=== PATIENT | male | born 1950 | race Caucasian/White ===

== ENCOUNTER → 2016-08-18 | Day surgery (SDC) | payer OTHER ==
[~2016-08-18] MED LIST: ACETAMINOPHEN/HYDROcodone 325 MG/5 MG TAB ONE; AMIT10 PO; ASPI325T PO; BETAPOW PO; BUPIVACAINE/EPINEPHRINE 0.5% PF 30 ML VIAL ONE; DAYP600T PO; ENDO10TA8 PO; FISH100020 PO; HYDR-3580 PO; KETOROLAC TROMETHAMINE 30 MG/ML (IVP) VIAL IV PUSH ONE; LACTATED RINGER'S 1000 ML INJ 1,000 ML ONE; METO50TA PO; MIDAZOLAM HCL 2 MG/2 ML VIAL ONE; MS C30TA5 PO; OCUVTAB4 PO; ONDANSETRON HCL 4 MG/2 ML VIAL IV PUSH ONE; OXYC1TAB36 PO; PERC5TAB12 PO; PROPOFOL 200 MG/20 ML AMP IV ONE; REST15CA PO; RIVA10 PO; TEMA15CA PO; TRIAMCINOLONE ACETONIDE 40 MG/ML VIAL ONE; WALKER STANDARD; WALKER WHEELS/F1 MIS; XARE10TA PO; ZANA4CAP PO; ceFAZolin INJ 1,000 MG VIAL ONE
--- NOTE | 2016-08-19 17:51 | MP ---
cc: PARESH GIBSON DATE OF SURGERY: 08/18/2016. PREOPERATIVE DIAGNOSIS: Left knee medial meniscal tear. POSTOPERATIVE DIAGNOSIS: 1. Left knee medial meniscus tear. 2. Lateral meniscal tear. 3. Synovitis of the medial compartment and notch. OPERATIVE PROCEDURE PERFORMED: Left knee arthroscopy with partial medial meniscectomy and partial lateral meniscectomy with limited synovectomy. SURGEON: Paresh Gibson M.D. VISUAL ARTIST: ELINA Robbins. NOTE: The surgical procedure was assisted by my Advanced Registered Nurse Practitioner. My AUTOMOTIVE SERVICE PORTER presence was necessary throughout this case for the manipulation and positioning of the surgical extremity. My AUTOMOTIVE SERVICE PORTER was assisting me throughout the duration of this procedure. The skill set of an Advance Registered Nurse Practitioner was medically necessary to complete this procedure. During the surgical case, the surgical services asst was working at the back table and the Advance Registered Nurse Practitioner was directly assisting me. ESTIMATED BLOOD LOSS: Minimal. TOURNIQUET TIME: Zero minutes. ANESTHESIA: General. DESCRIPTION OF THE PROCEDURE IN DETAIL: The patient was brought back to the operative theater. General anesthesia was administered. The left lower extremity was prepped and draped in the usual sterile fashion after he was placed into a leg hernández. We made a standard inferolateral portal followed by an inferomedial portal under spinal needle visualization. There was mild synovitis in suprapatellar pouch. There was mild grade 1 chondromalacia of the patellofemoral joint. The medial compartment had some diffuse grade 2 chondromalacia with some hair on-end changes. We found at the anterior aspect of the joint there was proliferative synovium that was subluxing well into the joint of the medial compartment. We debrided this after making the inferomedial portal. We were then able to visualize the anterior horn of the medial meniscus which was found to be intact. There was tearing of the medial meniscus inner edge at the junction of the body in the posterior horn which was complex in nature. We used an oscillating shaver to perform a partial medial meniscectomy. I removed approximately 15% of the meniscus. The intercondylar notch was examined. The anterior cruciate ligament was found to be intact. There was synovial perforation and what looked like tearing around the insertion site of the posterior cruciate ligament, we debrided this and then we found that the vast majority of the insertion of the posterior cruciate ligament was intact. We observed the lateral compartment and found inner edge tearing of the lateral meniscus at the midbody region. There was grade 2 chondromalacia of the lateral femoral condyle. Oscillating shaving was performed to debride and perform a partial lateral meniscectomy. We removed approximately 15% of the meniscus with the debridement. The meniscus was otherwise found to be intact. There were no loose bodies in the gutter. There was a large plica over the medial femoral condyle but this was not removed as it did not appear to be pathologic. The portals were closed with 2-0 Vicryl followed by 3-0 nylon after an interarticular injection of 30 mL of 0.25% Marcaine with 40 mg of Kenalog was given. The wounds were dressed. The postoperative plan is early range of motion and weightbearing as tolerated. MD ANGELINE Goddard/GRETTA /3:05 PM /5:37 PM
== END | disposition home or self-care (01) ==
LOC: ESDC 12:56
PROVIDERS: ATTEND Orthopaedic Surgery
DX: S83.232A Complex tear of medial meniscus, current injury, left knee, initial encounter (principal); S83.282A Other tear of lateral meniscus, current injury, left knee, initial encounter; M65.9 Synovitis and tenosynovitis, unspecified
CPT/HCPCS: 01400; 29880; J0690; J1885; J2250; J2405; J3010; J3301; J7120

== ENCOUNTER 2016-10-13 13:28 | Inpatient (IN) | payer OTHER ==
[~2016-10-13] VITALS: Ht 180.3 cm; Wt 84.3 kg
[~2016-10-13 13:28] MED LIST changes: -ACETAMINOPHEN/HYDROcodone 325 MG/5 MG TAB ONE; -ASPI325T PO; -BUPIVACAINE/EPINEPHRINE 0.5% PF 30 ML VIAL ONE; -DAYP600T PO; -ENDO10TA8 PO; -KETOROLAC TROMETHAMINE 30 MG/ML (IVP) VIAL IV PUSH ONE; -LACTATED RINGER'S 1000 ML INJ 1,000 ML ONE; -MIDAZOLAM HCL 2 MG/2 ML VIAL ONE; -ONDANSETRON HCL 4 MG/2 ML VIAL IV PUSH ONE; -OXYC1TAB36 PO; -PROPOFOL 200 MG/20 ML AMP IV ONE; -TEMA15CA PO; -TRIAMCINOLONE ACETONIDE 40 MG/ML VIAL ONE; -WALKER WHEELS/F1 MIS; -XARE10TA PO; -ceFAZolin INJ 1,000 MG VIAL ONE
[2016-10-16] MEDS ORDERED: METO50TA PO ×2 (12:00)
[2016-10-16] MEDS ORDERED: OXYC1TAB36 PO ×2 (12:00)
[2016-10-16] MEDS ORDERED: TEMA15CA PO ×2 (12:01)
[2016-10-16] MEDS ORDERED: DAYP600T PO ×2 (12:01)
[2016-10-16] MEDS ORDERED: ASPI325T PO ×2 (12:05)
[2016-10-24] MEDS ORDERED: METOPROLOL TARTRATE 25 MG TAB PO PRN (05:30)
[2016-10-24] MEDS ORDERED: POVIDONE IODINE 5% (ANTISEPSIS KIT) 4 APPLICATIONS EACH NARE PRN (05:30)
[2016-10-24] MEDS ORDERED: CHLORHEXIDINE GLUCONATE 4% SOLN 120 ML BTL TOPICAL SCH (05:30)
[2016-10-24] MEDS ORDERED: CHLORHEXIDINE GLUCONATE 2 % 1 PACK (2 CLOTHS) TOPICAL PRN (05:30)
[2016-10-24] MEDS ORDERED: LACTATED RINGER'S 1000 ML IV PRN (05:30)
[2016-10-24] MEDS ORDERED: INSULIN HUMAN REGULAR 1,000 UNITS/10 ML VIAL SQ PRN (05:30)
[2016-10-24 07:00] VITALS: BP 144/74; PULSE 59; RESP 18; TEMP 98.5; O2SAT 98
[2016-10-24] MEDS ORDERED: GENTAMICIN SULFATE 80 MG/2 ML VIAL ONE (07:05)
[2016-10-24] MEDS ORDERED: ACETAMINOPHEN 1000 MG/100 ML VIAL IV ONE (07:28)
[2016-10-24] MEDS ORDERED: MIDAZOLAM HCL 2 MG/2 ML VIAL ONE (07:28)
[2016-10-24] MEDS ORDERED: fentaNYL CITRATE 250 MCG/5 ML AMP ONE (07:29)
[2016-10-24] MEDS ORDERED: ceFAZolin 2 GM PREMIX 50 ML IV SCH (08:00)
[2016-10-24] MEDS ORDERED: TRANEXAMIC ACID IV SCH (08:00)
[2016-10-24] MEDS ORDERED: EXPAREL PERI-ARTICULAR INJECTION (TOTAL VOL. 60 ML) P-ARTICULR SCH ×2 (08:00)
[2016-10-24] MEDS ORDERED: SODIUM CHLORIDE 0.9% IV SCH (08:00)
[2016-10-24] MEDS ORDERED: VANCOMYCIN 1000 MG/NS 250 ML (for <70 kg) IV SCH ×2 (08:00)
[2016-10-24] MEDS ORDERED: HYDROmorphone HCL PF 2 MG/ML VIAL ONE (08:25)
[2016-10-24] MEDS ORDERED: ENDO10TA8 PO (08:28)
[2016-10-24] MEDS ORDERED: XARE10TA PO (08:28)
[2016-10-24] MEDS ORDERED: WALKER WHEELS/F1 MIS (08:28)
[2016-10-24] MEDS ORDERED: ACETAMINOPHEN/HYDROcodone 325 MG/10 MG TAB PO PRN ×2 (09:30)
[2016-10-24] MEDS ORDERED: NALOXONE HCL 0.4 MG/ML AMP IV PRN (09:30)
[2016-10-24] MEDS ORDERED: ONDANSETRON HCL 4 MG/2 ML VIAL IVP PRN (09:30)
[2016-10-24] MEDS ORDERED: diphenhydrAMINE HCL 25 MG CAP PO PRN (09:30)
[2016-10-24] MEDS ORDERED: SODIUM CHLORIDE 0.9% FLUSH 5 ML FLUSH IVF PRN (09:30)
[2016-10-24] MEDS ORDERED: Post-op Orders (for Pharmacy) MISC XX ONE (09:30)
--- NOTE | 2016-10-24 09:40 | PD.OP ---
cc: Britton Fuller MD Operative Report Date of Surgery: Oct 24, 2016 Preoperative Diagnosis: Loose left total hip arthroplasty stem Postoperative Diagnosis: Procedure: Removal of left total hip arthroplasty femoral stem with revision of implant Surgeon: Britton Fuller Dry Cleaning Supervisor(s): COSME Moore PA-C The surgical procedure was assisted by my physician assistant site manager. My P.A. presence was necessary throughout this case for the manipulation and positioning of the surgical extremity. My P.A. was assisting me throughout the duration of this procedure. The skill set of a physician assistant site manager was medically necessary to complete this procedure. During the surgical case the surgical training specialist was working at the back table and the physician assistant site manager was directly assisting me. Operation and Findings: 50% weight left leg to percent weightbearing left leg with posterior hip precautions. IMPLANTS USED DePuy Marquette size [6] high offset stem with 36+5 ceramic Biolox ceramic head. DETAILS OF PROCEDURE: This patient has a history of severe left hip pain for over 6 months. He has a history of bilateral total hip arthroplasty. He did extremely well with his hip replacements for the first year. Preoperative lab work did not reveal signs of infection. Bone scan and CT scan and x-rays were concerning for a loose femoral stem. Treatment options were discussed with patient including revision of total hip. I discussed with him that if he does have an infection, he will needs a staged revision and prolonged IV antibiotics. The patient wished to proceed with surgery and informed consent was obtained. Operative site was marked. I discussed both posterior approach and anterior approach with patient decision was made for posterior approach. Patient was brought to OR and placed on OR table. IV sedation and general anesthesia was administered by anesthesiologist. Patient was positioned lateral on the operating room table. IV antibiotics were held until after tissue cultures were obtained. Time-out procedure was performed. The operative hip and leg were prepped with alcohol followed by Hibiclens and draped in the usual sterile fashion. Clean Air Suite was used for this procedure. The procedure began with a 6-inch incision over the posterolateral thigh. Subcutaneous tissue was dissected with Bovie. The fascia of the iliotibial band was incised. Gluteus muscle was split in line with fibers. Charnley retractor was placed. Piriformis and external rotator muscles were identified and then released from the posterior femur. The hip capsule was incised and sutures were placed to help retract the capsule. At this point the femoral stem and head identified. The hip was now dislocated. The femoral stem was now tapped with a mallet. The stem was loose. Insertion handle was now screwed into the stem. Osteotomes were used to remove bone around the calcar region and the greater trochanter. Flexible osteotomes were now passed down the sides of the stem to help loosen it. The stem was now back slapped and removed. At this point tissue was obtained. Tissue from the hip capsule, femoral stem, and synovium were obtained for frozen section as well as cultures. The stat frozen section was read by the pathologist as having a focal area of increased acute inflammation. At this point acute inflammation was attributed to a chronic loose femoral stem. Options at this time included removal of the acetabular shell and placement of antibiotic spacer proceeding with revision of femoral stem. Patient's preoperative lab work and clinical history were not suggestive of infection. Focal inflammation was attributed to the loose femoral stem. Decision was made to proceed with revision of femoral stem. At this point attention was turned towards preparation of the proximal femur. Retractors were placed around the proximal femur to allow for exposure. Canal finder was used to create a path down the canal. The intramedullary canal was now sequentially reamed up to size 6. The [place] Marquette stem was utilized. Next , the canal was sequentially broached until there was an excellent fit. Trial head and high offset neck were now was placed and the hip was reduced. The hip had excellent stability with good range of motion. The leg lengths were measured under clinically and found to be equal.Trial broach was removed. The summit stem was opened. Stem was fully impacted into the proximal femur in appropriate version. The +5 femoral head was placed. The hip was again reduced. The wound was thoroughly irrigated. Hip capsule, external rotators, and iliotibial band was closed with #1 Vicryl. A drain was placed deep into the wound. Subcutaneous tissue was closed with 3-0 Vicryl and the skin was closed with cruzito and Dermabond skin closure. The capsule layers were injected with a mixture of saline and bupivicaine. Dressings were applied. The patient was transferred to Recovery Room in stable condition. Britton Fuller MD Oct 24, 2016 09:40 Britton Fuller MD Oct 24, 2016 09:40
[2016-10-24] MEDS ORDERED: DO NOT ADM ANY ANTICOAGULANT DRUGS PRN (10:00)
[2016-10-24] MEDS ORDERED: *morphine SULFATE 8 MG/ML PERIprocedure ONLY ONE ×2 (10:18→11:00)
--- NOTE | 2016-10-24 10:36 | RADRPT ---
EXAM DATE/TIME: 10/24/2016 10:01 [facility] COMPARISON: CHEST PA & LAT, October 16, 2016, 9:21. INDICATIONS : Post op left hip arthroplasty. MEDICAL HISTORY : Hypertension. SURGICAL HISTORY : None. ENCOUNTER: Initial ACUITY: 1 day PAIN SCORE: 0/10 LOCATION: Left hip FINDINGS: The patient is post left hip arthroplasty. Orthopedic hardware is in excellent position. The alignmen t is good. CONCLUSION: 1. Excellent alignment of the patient's left hip arthroplasty. 2. Note is made of fusion hardware in the lower lumbar spine previous right hip arthroplasty. Leland Jacobson MD on October 24, 2016 at 10:33 Board Certified Radiologist. This report was verified electronically.
[2016-10-24 11:15] VITALS: BP 143/67; PULSE 60; RESP 18; TEMP 96.8; O2SAT 100
[2016-10-24] MEDS: oxyCODONE/ACETAMINOPHEN 10 MG/325 MG TAB PO PRN ×4 (11:31→21:31)
[2016-10-24] MEDS ORDERED: PROPOFOL 200 MG/20 ML AMP IV ONE (11:32)
[2016-10-24] MEDS ORDERED: ePHEDrine/NS 25 MG/5 ML SYR IV ONE (11:32)
[2016-10-24] MEDS ORDERED: ONDANSETRON HCL 4 MG/2 ML VIAL IV PUSH ONE (11:33)
[2016-10-24] MEDS ORDERED: LACTATED RINGER'S 1000 ML INJ 1,000 ML IV ONE (11:33)
[2016-10-24] MEDS ORDERED: PHENYLEPH/NS 1000 MCG/10 ML SYR IV ONE (11:33)
[2016-10-24] MEDS ORDERED: NEOSTIGMINE 3 MG/3 ML SYR IV ONE (11:33)
[2016-10-24] MEDS: MORPHINE SULFATE 4 MG/ML INJ IV PUSH PRN ×2 (12:10→19:49)
[2016-10-24] MEDS: KETOROLAC TROMETHAMINE 30 MG/ML (IVP) VIAL IV PUSH SCH ×2 (14:40→21:32)
[2016-10-24] MEDS: ceFAZolin 2 GM PREMIX 50 ML IV SCH ×2 (14:40→19:48)
[2016-10-24 15:50] VITALS: BP 123/61; PULSE 83; RESP 17; TEMP 97.6; O2SAT 100
[2016-10-24 18:15] VITALS: O2SAT 100
[2016-10-24 20:00] VITALS: BP 125/59; PULSE 74; RESP 17; TEMP 96.3; O2SAT 92
[2016-10-24] MEDS: SODIUM CHLORIDE 0.9% FLUSH 5 ML FLUSH IVF SCH (21:32)
[2016-10-24] MEDS: VANCOMYCIN INJ 1,000 MG in SODIUM CHLOR 0.9% 250 ML INJ 250 ML IV SCH (21:32)
[2016-10-24] MEDS: OXAPROZIN 600 MG TAB PO SCH (21:32)
[2016-10-24] MEDS: TEMAZEPAM 15 MG CAP PO PRN (21:36)
[2016-10-25] VITALS (9 sets, daily range): BP systolic 104–152; BP diastolic 54–68; PULSE 87–112; RESP 16–18; TEMP 97.3–99.4; O2SAT 95–98
[2016-10-25] MEDS: ceFAZolin 2 GM PREMIX 50 ML IV SCH ×4 (03:07→19:28)
[2016-10-25] MEDS: oxyCODONE/ACETAMINOPHEN 10 MG/325 MG TAB PO PRN ×6 (03:07→22:53)
[2016-10-25] MEDS: MORPHINE SULFATE 4 MG/ML INJ IV PUSH PRN ×5 (04:10→21:10)
[2016-10-25 05:55] LABS: HEMATOCRIT 33.2 % (39.0-51.0); REVIEW FLAG FINAL
--- NOTE | 2016-10-25 07:59 | PD.ORT.PN ---
Subjective Subjective Remarks Resting in bed comfortably with moderate drainage Objective Vitals Vital Signs Date Time Temp Pulse Resp B/P Pulse Ox O2 Delivery O2 Flow Rate FiO2 10/25/16 04:11 99.4 112 18 128/59 97 10/25/16 00:20 97.3 105 17 123/59 97 10/24/16 20:00 96.3 74 17 125/59 92 10/24/16 19:54 Nasal Cannula 2.00 10/24/16 18:15 100 Nasal Cannula 2.00 10/24/16 15:50 97.6 83 17 123/61 100 10/24/16 11:37 Nasal Cannula 2.00 10/24/16 11:15 96.8 60 18 143/67 100 10/24/16 11:00 62 16 145/73 98 Nasal Cannula 2 10/24/16 10:45 61 16 145/69 100 Nasal Cannula 2 10/24/16 10:30 60 16 139/69 97 Nasal Cannula 2 10/24/16 10:15 70 16 140/69 99 Nasal Cannula 2 10/24/16 10:00 97.5 70 16 146/65 95 Nasal Cannula 2 I/O 10/24/16 10/24/16 10/24/16 10/25/16 10/25/16 10/25/16 07:00 15:00 23:00 07:00 15:00 23:00 Intake Total 2520 ml 480 ml 240 ml Output Total 1835 ml 510 ml 1610 ml Balance 685 ml -30 ml -1370 ml Intake Oral 720 ml 480 ml 240 ml IV Total 800 ml Other 1000 ml Output Urine Total 1575 ml 500 ml 1600 ml Drainage Total 60 ml 10 ml 10 ml Estimated Blood Loss 200 ml # Voids 0 # Bowel Movements 0 0 Result Diagram: 10/25/16 0507 Imaging Last 72 hours Impressions Hip and Pelvis X-Ray 10/24/16 0000 Signed Impressions: Service Date/Time: Monday, October 24, 2016 10:01 - CONCLUSION: 1. Excellent alignment of the patient's left hip arthroplasty. 2. Note is made of fusion hardware in the lower lumbar spine previous right hip arthroplasty. Leland Jacobson MD Objective Remarks Left lower extremity: Compartments soft. Moderate drainage from drain site. Incision clean and dry with no erythema or drainage. Full range of motion of knee and ankle. Intact sensation distally with strong dorsiflexion plantar flexion of foot Assessment & Plan Assessment and Plan Left total hip arthroplasty revision POD 1 Physical therapy for 50% weightbearing left lower extremity with posterior hip precautions Initial cultures are showing rare gram cocci in pairs. We'll continue to follow cultures Lovenox Remove drain after physical therapy and begin daily dressing changes. Dry dressings over incision Will continue to work toward discharge to home and follow-up appointment in 2 weeks. If cultures show infection we will need to proceed with possible further surgical intervention or antibiotic suppression Patrick Gaspar Jr. ELIZABETH Oct 25, 2016 07:59
--- NOTE | 2016-10-25 08:00 | HHI.FF ---
Face to Face Verification Diagnosis: (1) Status post total hip replacement, left Physical Therapy Gait training, Safety evaluation Hip: Total hip, Protocol: Left, Posterior hip precautions Left LE Weight Bearing: Partial WB 50% Nursing Dressing Changes: Daily dressing change, Xeroform (begin Xeroform starting 11/03), Coverderm/Primapore I have seen patient Leo Cardoso Jr Kassandra on 10/25/16. My clinical findings support the need for the requested home health care services because: Limited ability to care for self I certify that my clinical findings support that this patient is homebound because: Post-op weakness Patrick Gaspar Jr. Oct 25, 2016 08:00
[2016-10-25] MEDS: VANCOMYCIN INJ 1,000 MG in SODIUM CHLOR 0.9% 250 ML INJ 250 ML IV SCH (08:18)
[2016-10-25] MEDS: SODIUM CHLORIDE 0.9% FLUSH 5 ML FLUSH IVF SCH ×2 (08:19→19:29)
[2016-10-25] MEDS: OXAPROZIN 600 MG TAB PO SCH ×2 (08:19→21:09)
[2016-10-25] MEDS: METOPROLOL TARTRATE 50 MG TAB PO SCH (08:19)
[2016-10-25] MEDS: ENOXAPARIN SODIUM 30 MG/0.3 ML SYRINGE SQ SCH ×2 (08:20→21:09)
[2016-10-25 15:31] LABS: BASOPHIL % 0.4 % (0.0-2.0); EOSINOPHIL # 0.1 TH/MM3 (0-0.4); EOSINOPHIL % 1.4 % (0.0-4.0); HEMATOCRIT 34.7 % (39.0-51.0); HEMO FLAGS DIFF FINAL; LYMPH % 9.6 % (9.0-44.0); MEAN CELL VOLUME 87.1 FL (80.0-100.0); MEAN CORPUSCULAR HEMOGLOBIN 30.5 PG (27.0-34.0); MEAN CORPUSCULAR HGB CONC 35.1 % (32.0-36.0); MONO % 11.2 % (0.0-8.0); NEUT % 77.4 % (16.0-70.0); PLATELET COUNT 327 TH/MM3 (150-450); RED BLOOD COUNT 3.98 MIL/MM3 (4.50-5.90); RED CELL DISTRIBUTION WIDTH 14.6 % (11.6-17.2); WHITE BLOOD COUNT 10.3 TH/MM3 (4.0-11.0)
[2016-10-25] MEDS ORDERED: LACTULOSE SYRUP 20 GM/30 ML CUP PO PRN (20:15)
[2016-10-25] MEDS ORDERED: SENNOSIDES 8.6 MG TAB PO PRN (20:15)
[2016-10-25] MEDS: DOCUSATE SODIUM 100 MG CAP PO SCH (21:08)
[2016-10-25] MEDS: MAGNESIUM HYDROXIDE SUSP 30 ML CUP PO SCH (21:09)
[2016-10-25] MEDS: TEMAZEPAM 15 MG CAP PO PRN (21:15)
[2016-10-26] MEDS: MORPHINE SULFATE 4 MG/ML INJ IV PUSH PRN ×3 (03:14→13:31)
[2016-10-26] MEDS: oxyCODONE/ACETAMINOPHEN 10 MG/325 MG TAB PO PRN ×4 (04:32→18:32)
--- NOTE | 2016-10-26 07:34 | PD.ORT.PN ---
Subjective Subjective Remarks Resting in bed comfortably. Irritation of throat has improved Objective Vitals Vital Signs Date Time Temp Pulse Resp B/P Pulse Ox O2 Delivery O2 Flow Rate FiO2 10/25/16 23:43 98.3 99 16 152/63 95 10/25/16 21:02 97 21 10/25/16 20:00 99.0 95 16 125/58 97 10/25/16 20:00 97 Room Air 10/25/16 16:00 97.6 93 18 121/68 98 10/25/16 12:38 96 10/25/16 12:00 99.0 87 18 104/54 97 10/25/16 09:53 17 10/25/16 09:19 17 10/25/16 08:00 98.3 100 18 150/67 97 I/O 10/25/16 10/25/16 10/25/16 10/26/16 10/26/16 10/26/16 07:00 15:00 23:00 07:00 15:00 23:00 Intake Total 240 ml 1200 ml 1124 ml Output Total 1610 ml 200 ml 850 ml 500 ml Balance -1370 ml -200 ml 350 ml 624 ml Intake Oral 240 ml 1200 ml 600 ml IV Total 524 ml Output Urine Total 1600 ml 200 ml 850 ml 500 ml Drainage Total 10 ml # Voids 2 # Bowel Movements 0 Result Diagram: 10/25/16 1520 Imaging Last 72 hours Impressions Hip and Pelvis X-Ray 10/24/16 0000 Signed Impressions: Service Date/Time: Monday, October 24, 2016 10:01 - CONCLUSION: 1. Excellent alignment of the patient's left hip arthroplasty. 2. Note is made of fusion hardware in the lower lumbar spine previous right hip arthroplasty. Leland Jacobson MD Objective Remarks Left lower extremity: Compartments soft. Clean dry dressings intact. Incision clean and dry with no erythema or drainage. Full range of motion of knee and ankle. Intact sensation distally with strong dorsiflexion plantar flexion of foot Assessment & Plan Assessment and Plan Left total hip arthroplasty revision POD 2 Physical therapy for 50% weightbearing left lower extremity with posterior hip precautions Initial cultures are showing rare gram cocci in pairs. We'll continue to follow cultures Lovenox Percocet 10 one every 3 hours when necessary pain. Discontinue morphine at 1600. If continuing to need help with pain control and muscle spasms begin Flexeril 5 mg every 8 hours. begin daily dressing changes. Dry dressings over incision Will continue to work toward discharge to rehab and follow-up appointment in 2 weeks. If cultures show infection we will need to proceed with possible further surgical intervention or antibiotic suppression Patrick Gaspar Jr. Oct 26, 2016 07:34
[2016-10-26 08:00] VITALS: BP 112/62; PULSE 103; RESP 18; TEMP 98.4; O2SAT 95
[2016-10-26] MEDS: ENOXAPARIN SODIUM 30 MG/0.3 ML SYRINGE SQ SCH ×2 (08:57→20:34)
[2016-10-26] MEDS: DOCUSATE SODIUM 100 MG CAP PO SCH ×2 (08:57→20:34)
[2016-10-26] MEDS: SODIUM CHLORIDE 0.9% FLUSH 5 ML FLUSH IVF SCH ×2 (08:57→20:35)
[2016-10-26] MEDS: MAGNESIUM HYDROXIDE SUSP 30 ML CUP PO SCH ×2 (08:57→20:37)
[2016-10-26] MEDS: OXAPROZIN 600 MG TAB PO SCH ×2 (08:57→20:34)
[2016-10-26] MEDS: METOPROLOL TARTRATE 50 MG TAB PO SCH (08:57)
[2016-10-26 11:20] VITALS: BP 113/62; PULSE 105; RESP 18; TEMP 99.7; O2SAT 97
[2016-10-26 16:00] VITALS: BP 116/53; PULSE 100; RESP 18; TEMP 99.4; O2SAT 98
[2016-10-26 19:30] VITALS: BP 111/63; PULSE 93; RESP 17; TEMP 99.9; O2SAT 96
[2016-10-26] MEDS: TEMAZEPAM 15 MG CAP PO PRN (20:36)
[2016-10-27] VITALS: BP 155/70; PULSE 107; RESP 18; TEMP 99.6; O2SAT 96
[2016-10-27] MEDS: oxyCODONE/ACETAMINOPHEN 10 MG/325 MG TAB PO PRN ×6 (00:23→18:23)
[2016-10-27 04:00] VITALS: BP 128/63
--- NOTE | 2016-10-27 06:51 | PD.ORT.PN ---
Subjective Subjective Remarks Resting in bed comfortably. Irritation of throat has improved Objective Vitals Vital Signs Date Time Temp Pulse Resp B/P Pulse Ox O2 Delivery O2 Flow Rate FiO2 10/27/16 04:00 128/63 10/27/16 00:00 99.6 107 18 155/70 96 10/26/16 19:30 99.9 93 17 111/63 96 10/26/16 19:12 Room Air 10/26/16 16:00 99.4 100 18 116/53 98 10/26/16 11:20 99.7 105 18 113/62 97 10/26/16 08:00 98.4 103 18 112/62 95 I/O 10/26/16 10/26/16 10/26/16 10/27/16 10/27/16 10/27/16 07:00 15:00 23:00 07:00 15:00 23:00 Intake Total 1124 ml 960 ml 240 ml Output Total 500 ml 375 ml 200 ml 300 ml Balance 624 ml -375 ml 760 ml -60 ml Intake Oral 600 ml 960 ml 240 ml IV Total 524 ml Output Urine Total 500 ml 375 ml 200 ml 300 ml # Voids 2 2 # Bowel Movements 2 0 Result Diagram: 10/25/16 1520 Imaging Last 72 hours Impressions Hip and Pelvis X-Ray 10/24/16 0000 Signed Impressions: Service Date/Time: Monday, October 24, 2016 10:01 - CONCLUSION: 1. Excellent alignment of the patient's left hip arthroplasty. 2. Note is made of fusion hardware in the lower lumbar spine previous right hip arthroplasty. Leland Jacobson MD Objective Remarks Left lower extremity: Compartments soft. Clean dry dressings intact. Incision clean and dry with no erythema or drainage. Knee immobilizer in place.Full range of motion of knee and ankle. Intact sensation distally with strong dorsiflexion plantar flexion of foot Assessment & Plan Assessment and Plan Left total hip arthroplasty revision POD 3 Physical therapy for 50% weightbearing left lower extremity with posterior hip precautions Initial cultures are showing rare gram cocci in pairs. Only one out of 2 samples .We'll continue to follow cultures Lovenox Percocet 10 one every 3 hours when necessary pain. daily dressing changes. Dry dressings over incision Will continue to work toward discharge to rehab today and follow-up appointment in 2 weeks. If cultures show infection we will need to proceed with possible further surgical intervention or antibiotic suppression Patrick Gaspar Jr. ELIZABETH Oct 27, 2016 06:51
--- NOTE | 2016-10-27 06:57 | HHI.DS ---
Discharge Summary Admission Date Oct 24, 2016 at 05:05 Discharge Date: Oct 27, 2016 Admitting Diagnosis Left total hip arthroplasty with prosthesis loosening (1) Status post total hip replacement, left Diagnosis: Principal Procedures Left total hip arthroplasty revision with removal of previous hardware Brief History Leo is a 66-year-old male who is patient known to Dr. Fuller. He previously had right and left total hip arthroplasties. Due to continued pain of the left hip and assessed loosening of hardware was admitted to the hospital for revision of left total hip arthroplasty CBC/BMP: 10/25/16 1520 Significant Findings Laboratory Tests Test 10/25/16 10/25/16 05:07 15:20 Hemoglobin 11.6 GM/DL 12.2 GM/DL (13.0-17.0) (13.0-17.0) Hematocrit 33.2 % 34.7 % (39.0-51.0) (39.0-51.0) Red Blood Count 3.98 MIL/MM3 (4.50-5.90) Neutrophils (%) (Auto) 77.4 % (16.0-70.0) Monocytes (%) (Auto) 11.2 % (0.0-8.0) Neutrophils # (Auto) 8.0 TH/MM3 (1.8-7.7) Monocytes # (Auto) 1.2 TH/MM3 (0-0.9) Hospital Course Leo was admitted to [facility] and taken to the operating room for revision of left total hip arthroplasty. Revision proceeded with out any complications and cultures and tissue were sent to pathology and for culture. Patient was brought to the sixth floor and continued to progress well with pain control. He remained hemodynamically stable and progressed well with physical therapy. Since she lives alone he will be discharged to a longterm facility today. Cultures are still pending and we'll continue to follow as a progress. He will follow-up with Dr. Fuller in 2 weeks. He will continue to be 50% weightbearing on the left lower extremity and have a knee immobilizer on only when in bed.. He'll continue to observe posterior hip precautions Pt Condition on Discharge: Good Discharge Disposition: Discharge to SNF Discharge Instructions DIET: Follow Instructions for: As Tolerated, No Restrictions Activities you can perform: Partial Weight Bearing Activities to avoid: Shower Follow up Referrals: Orthopedics - 11/07/16 @ [facility] with Britton Fuller MD New Medications: Oxycodone-Acetaminophen (Endocet) 10-325 mg Tab 1 TAB PO Q4H PRN Pain Management #60 Ref 0 TAB Rivaroxaban (Xarelto) 10 Mg Tab 10 MG PO DAILY Blood Clot Prevention #21 Ref 0 TAB Walker with Front Wheels (Walker with Front Wheels) 1 Mis Mis 1 EA .ROUTE DIRECTED #1 Ref 0 EA Continued Medications: Aspirin (Aspirin) 325 Mg Tab 325 MG PO DAILY #30 Ref 0 TAB Metoprolol Tartrate (Metoprolol Tartrate) 50 Mg Tab 50 MG PO DAILY #30 Ref 0 TAB Oxaprozin (Daypro) 600 Mg Tab 600 MG PO Q12HR Arthritis #60 Ref 0 TAB Oxycodone-Acetaminophen (Oxycodone-Acetaminophen) 10-325 mg Tab 1 TAB PO Q4H PRN PAIN Ref 0 TAB Temazepam (Temazepam) 15 Mg Cap 15 MG PO HS PRN INSOMNIA #30 Ref 0 CAP Patrick Gaspar Jr. Oct 27, 2016 06:57
[2016-10-27 07:50] VITALS: BP 142/67; PULSE 87; RESP 17; TEMP 98.6; O2SAT 95
[2016-10-27] MEDS: MAGNESIUM HYDROXIDE SUSP 30 ML CUP PO SCH (09:00)
[2016-10-27] MEDS: DOCUSATE SODIUM 100 MG CAP PO SCH (09:00)
[2016-10-27] MEDS: SODIUM CHLORIDE 0.9% FLUSH 5 ML FLUSH IVF SCH (09:00)
[2016-10-27] MEDS: OXAPROZIN 600 MG TAB PO SCH (09:15)
[2016-10-27] MEDS: METOPROLOL TARTRATE 50 MG TAB PO SCH (09:15)
[2016-10-27] MEDS: ENOXAPARIN SODIUM 30 MG/0.3 ML SYRINGE SQ SCH (09:16)
[2016-10-27 12:00] VITALS: BP 158/73; PULSE 109; RESP 17; TEMP 98.4; O2SAT 96
[2016-10-27 15:57] VITALS: BP 117/56; PULSE 79; RESP 17; TEMP 99.1; O2SAT 97
== END 2016-10-27 19:00 | DRG 468 ==
LOC: HSDI 10-24 05:05 → N06B 10-24 11:30
PROVIDERS: ADMIT Orthopaedic Surgery Orthopaedic Trauma; ATTEND Orthopaedic Surgery Orthopaedic Trauma
PROC: 0SPS0JZ Removal of Synthetic Substitute from Left Hip Joint, Femoral Surface, Open Approach (ICD-10-PCS; 2016-10-24)
PROC: 0SRS03A Replacement of Left Hip Joint, Femoral Surface with Ceramic Synthetic Substitute, Uncemented, Open Approach (ICD-10-PCS; principal; 2016-10-24 07:29)
DX: T84.031A Mechanical loosening of internal left hip prosthetic joint, initial encounter (principal); I10 Essential (primary) hypertension; F17.210 Nicotine dependence, cigarettes, uncomplicated; M54.9 Dorsalgia, unspecified
CPT/HCPCS: 73502; 85014; 85018; 85025; 86850; 86900; 86901; 86920; 87015; 87070; 87102; 87116; 87205; 87206; 88305; 88331; C1776; C9290; J0131; J0690; J1170; J1580; J1650; J1885; J2250; J2270; J2370; J2405; J2710; J3010; J3370; J7050; J7120

== ENCOUNTER → 2016-10-16 | Outpatient (CLI) | payer OTHER ==
[~2016-10-16] MED LIST changes: +ASPI325T PO; +DAYP600T PO; +ENDO10TA8 PO; +OXYC1TAB36 PO; +TEMA15CA PO; +WALKER WHEELS/F1 MIS; +XARE10TA PO
[2016-10-16 09:21] LABS: AUTOMATED NEUTROPHIL # 6.9 TH/MM3 (1.8-7.7); BASOPHIL # 0.1 TH/MM3 (0-0.2); BASOPHIL % 0.6 % (0.0-2.0); EOSINOPHIL # 0.1 TH/MM3 (0-0.4); EOSINOPHIL % 1.2 % (0.0-4.0); HEMATOCRIT 43.6 % (39.0-51.0); HEMO FLAGS DIFF FINAL; LYMPH % 18.8 % (9.0-44.0); LYMPHOCYTE # 1.8 TH/MM3 (1.0-4.8); MEAN CELL VOLUME 89.2 FL (80.0-100.0); MEAN CORPUSCULAR HGB CONC 32.5 % (32.0-36.0); MONO % 8.1 % (0.0-8.0); NEUT % 71.3 % (16.0-70.0); PLATELET COUNT 351 TH/MM3 (150-450); RED BLOOD COUNT 4.89 MIL/MM3 (4.50-5.90); RED CELL DISTRIBUTION WIDTH 14.7 % (11.6-17.2); WHITE BLOOD COUNT 9.7 TH/MM3 (4.0-11.0)
[2016-10-16 09:32] LABS: APTT (PATIENT) 30.1 SEC (24.3-30.1); PROTHROMBIN TIME - PATIENT 11.1 SEC (9.8-11.6)
[2016-10-16 09:42] LABS: BLOOD, URINE NEG (NEG); GLUCOSE,URINE NEG (NEG); KETONE, URINE NEG (NEG); MUCUS URINE FEW /lpf (OCC); NITRITE,URINE NEG (NEG); PH, URINE 5.5 (5.0-8.5); URINE COLOR YELLOW (YELLW/STRAW)
[2016-10-16 09:43] LABS: COMMENT (UR) CULT NOT INDICATED; CULTURE IF INDICATED CULT NOT INDICATED
[2016-10-16 09:52] LABS: BICARBONATE 26.9 MEQ/L (21.0-32.0); POTASSIUM 4.2 MEQ/L (3.5-5.1)
--- NOTE | 2016-10-16 09:58 | RADRPT ---
EXAM DATE/TIME: 10/16/2016 09:21 [facility] COMPARISON: PELVIS AP ONLY, March 09, 2015, 12:38. INDICATIONS : Evaluate for pneumonia, pneumothorax and communicable diseases. Pre-op for left hip surgery. MEDICAL HISTORY : Hypertension. SURGICAL HISTORY : None. ENCOUNTER: Initial ACUITY: 1 day PAIN SCORE: 0/10 LOCATION: Bilateral chest FINDINGS: PA and lateral views of the chest demonstrate the lungs to be symmetrically aerated without evidence of mass, infiltrate or effusion. The cardiomediastinal contours are unremarkable. Osseous structure s are intact. CONCLUSION: 1. No acute cardiopulmonary findings identified. Leland Jacobson MD on October 16, 2016 at 9:56 Board Certified Radiologist. This report was verified electronically.
--- NOTE | 2016-10-17 14:13 | EKG ---
Date Performed: 10/16/2016 Time Performed: 08:50:24 PTAGE: 66 years EKG: Sinus rhythm BORDERLINE LEFT AXIS DEVIATION MODERATE INTRAVENTRICULAR CONDUCTION DELAY Compared to the previous t racing axis is now more leftward BORDERLINE ECG PREVIOUS TRACING : 07/16/96 DOCTOR: Jensen Bernal Interpretating Date/Time 10/17/2016 14:12:43
== END ==
LOC: CPRE 08:07
PROVIDERS: ATTEND Orthopaedic Surgery Orthopaedic Trauma
DX: Z01.810 Encounter for preprocedural cardiovascular examination (principal); Z01.811 Encounter for preprocedural respiratory examination; Z01.812 Encounter for preprocedural laboratory examination; Z96.60 Presence of unspecified orthopedic joint implant; Z79.01 Long term (current) use of anticoagulants; Z01.818 Encounter for other preprocedural examination; Z13.9 Encounter for screening, unspecified; M79.609 Pain in unspecified limb; R94.31 Abnormal electrocardiogram [ECG] [EKG]
CPT/HCPCS: 36415; 71020; 80048; 81001; 85025; 85610; 85730; 93005

== ENCOUNTER → 2017-04-13 | Outpatient (CLI) | payer OTHER ==
[~2017-04-13] MED LIST changes: -AMIT10 PO; +AMLO5 PO; +ASPI-146 PO; +ASPI-183 PO; +ASPI1POW9 PO; -ASPI325T PO; -BETAPOW PO; +COMMODE 3-IN-11 MIS; +CPMMACHINE; +ENOX40IN SQ; -FISH100020 PO; -HYDR-3580 PO; -MS C30TA5 PO; +NORC5TAB PO; -OCUVTAB4 PO; -PERC5TAB12 PO; +PERC7.5T13 PO; -REST15CA PO; -RIVA10 PO; +SOMA350T PO; -WALKER STANDARD; -ZANA4CAP PO
[2017-04-13 10:34] LABS: AUTOMATED NEUTROPHIL # 5.8 TH/MM3 (1.8-7.7); BASOPHIL # 0.1 TH/MM3 (0-0.2); BASOPHIL % 0.9 % (0.0-2.0); EOSINOPHIL # 0.2 TH/MM3 (0-0.4); EOSINOPHIL % 2.2 % (0.0-4.0); HEMATOCRIT 45.1 % (39.0-51.0); HEMO FLAGS DIFF FINAL; LYMPH % 19.5 % (9.0-44.0); LYMPHOCYTE # 1.7 TH/MM3 (1.0-4.8); MEAN CELL VOLUME 86.8 FL (80.0-100.0); MEAN CORPUSCULAR HEMOGLOBIN 28.9 PG (27.0-34.0); MEAN CORPUSCULAR HGB CONC 33.3 % (32.0-36.0); NEUT % 68.4 % (16.0-70.0); PLATELET COUNT 431 TH/MM3 (150-450); RED CELL DISTRIBUTION WIDTH 15.3 % (11.6-17.2); WHITE BLOOD COUNT 8.5 TH/MM3 (4.0-11.0)
[2017-04-13 10:46] LABS: APTT (PATIENT) 30.3 SEC (24.3-30.1); INTERNATIONAL NORMALIZED RATIO 1.1 RATIO; PROTHROMBIN TIME - PATIENT 11.3 SEC (9.8-11.6)
[2017-04-13 10:51] LABS: ANION GAP 9 MEQ/L (5-15); AST (GOT) 24 U/L (15-37); BICARBONATE 25.5 MEQ/L (21.0-32.0); BLOOD UREA NITROGEN 25 MG/DL (7-18); CHLORIDE 103 MEQ/L (98-107); GLOMERULAR FILTRATION RATE 64 ML/MIN (>89); GLUCOSE,FASTING 94 MG/DL (74-99); POTASSIUM 4.1 MEQ/L (3.5-5.1); SODIUM (NA) 137 MEQ/L (136-145)
[2017-04-13 10:52] LABS: ALT (GPT) 30 U/L (12-78)
[2017-04-13 10:54] LABS: ALKALINE PHOSPHATASE 70 U/L (45-117); TOTAL BILIRUBIN ADULT 0.4 MG/DL (0.2-1.0)
[2017-04-13 11:11] LABS: WESTERGREN SEDIMENTATION RATE 3 mm/hr (0-20)
[2017-04-13 11:39] LABS: BLOOD, URINE NEG (NEG); COMMENT (UR) CULT NOT INDICATED; CULTURE IF INDICATED CULT NOT INDICATED; GLUCOSE,URINE NEG (NEG); KETONE, URINE NEG (NEG); MUCUS URINE FEW /lpf (OCC); NITRITE,URINE NEG (NEG); PH, URINE 5.5 (5.0-8.5); SQUAMOUS EPITHELIAL CELL URINE <1 /hpf (0-5); URINE COLOR YELLOW (YELLW/STRAW)
--- NOTE | 2017-04-13 12:12 | RADRPT ---
EXAM DATE/TIME: 04/13/2017 11:40 [facility] COMPARISON: CHEST PA & LAT, October 16, 2016, 9:21. INDICATIONS : Evaluate for pneumonia, pneumothorax and communicable diseases. Pre-op Knee surgery MEDICAL HISTORY : None. SURGICAL HISTORY : None. ENCOUNTER: Initial ACUITY: 1 day PAIN SCORE: 0/10 LOCATION: chest FINDINGS: PA and lateral views of the chest demonstrates hyperinflation which can be seen with CO PD. No infiltrates are seen. Heart is normal in size. The mediastinal contours are unremarkable. O sseous structures are intact. Degenerative changes thoracic spine. CONCLUSION: Hyperinflation which can be seen with COPD. No acute cardiopulmonary disease an d no evidence for an infiltrate. Franco Tang MD on April 13, 2017 at 12:10 Board Certified Radiologist. This report was verified electronically.
--- NOTE | 2017-04-14 12:56 | EKG ---
Date Performed: 04/13/2017 Time Performed: 11:09:00 PTAGE: 66 years EKG: Borderline left axis deviation Poor initial anterior forces V1 and V2 which may be normal v ariant Since previous tracing, no significant change noted Abnormal ECG PREVIOUS TRACING : 10/16/2016 08.50 DOCTOR: Nakul Cohen Interpretating Date/Time 04/14/2017 12:54:53
== END ==
LOC: CPRE 09:29
PROVIDERS: ATTEND Orthopaedic Surgery
DX: Z01.812 Encounter for preprocedural laboratory examination (principal); Z01.810 Encounter for preprocedural cardiovascular examination; M79.609 Pain in unspecified limb; M25.50 Pain in unspecified joint; R94.31 Abnormal electrocardiogram [ECG] [EKG]
CPT/HCPCS: 36415; 71020; 80053; 81001; 85025; 85610; 85652; 85730; 93005

== ENCOUNTER 2017-04-25 07:08 | Inpatient (IN) | payer OTHER ==
[~2017-04-25] VITALS: Ht 167.6 cm; Wt 87.0 kg
[~2017-04-25 07:08] MED LIST changes: -AMLO5 PO; -ASPI-146 PO; -ASPI-183 PO; -COMMODE 3-IN-11 MIS; -CPMMACHINE; -ENDO10TA8 PO; -ENOX40IN SQ; -NORC5TAB PO; -OXYC1TAB36 PO; -PERC7.5T13 PO; -SOMA350T PO; -TEMA15CA PO; -WALKER WHEELS/F1 MIS; -XARE10TA PO
[2017-04-25] MEDS ORDERED: AMLO5 PO (07:59)
[2017-04-25] MEDS: POVIDONE IODINE 5% (ANTISEPSIS KIT) 4 APPLICATIONS EACH NARE PRN ×2 (08:00→08:50)
[2017-04-25] MEDS ORDERED: LACTATED RINGER'S 1000 ML IV PRN (08:30)
[2017-04-25] MEDS ORDERED: SODIUM CHLORID 0.9% 500 ML IV PRN (08:30)
[2017-04-25] MEDS ORDERED: ceFAZolin 2 GM PREMIX 50 ML ONE (08:30)
[2017-04-25] MEDS ORDERED: CHLORHEXIDINE GLUCONATE 2 % 1 PACK (2 CLOTHS) TOPICAL PRN (08:30)
[2017-04-25] MEDS ORDERED: SODIUM CHLOR 0.9% 250 ML INJ 250 ML ONE (08:30)
[2017-04-25] MEDS ORDERED: METOPROLOL TARTRATE 25 MG TAB PO PRN (08:30)
[2017-04-25] MEDS ORDERED: VANCOMYCIN HCL 1000 MG VIAL ONE (08:30)
[2017-04-25] MEDS ORDERED: DEXAMETHASONE SOD PHOS 20 MG/5 ML VIAL ONE (08:30)
[2017-04-25] MEDS ORDERED: ceFAZolin 2 GM PREMIX 50 ML IV SCH (08:45)
[2017-04-25] MEDS ORDERED: VANCOMYCIN 1000 MG/NS 250 ML (for <70 kg) IV SCH ×2 (08:45)
[2017-04-25] MEDS ORDERED: POVIDONE IODINE 7.5% SCRUB 118 ML BOTTLE TOPICAL SCH ×2 (08:45→10:30)
[2017-04-25] MEDS ORDERED: DEXAMETHASONE SOD PHOS 20 MG/5 ML VIAL IV SCH (08:45)
[2017-04-25] MEDS ORDERED: ACETAMINOPHEN 1000 MG/100 ML 100 ML IV ONE (09:23)
[2017-04-25] MEDS ORDERED: BUPIVACAINE LIPOSOME PF 1.3% 20 ML VIAL ONE (09:23)
[2017-04-25] MEDS ORDERED: GENTAMICIN SULFATE 80 MG/2 ML VIAL ONE (09:45)
[2017-04-25] MEDS ORDERED: SODIUM CHLORIDE 0.9% IV ONE (10:00)
[2017-04-25] MEDS ORDERED: TRANEXAMIC ACID IV ONE (10:00)
[2017-04-25] MEDS ORDERED: ROPIVACAINE PERI-ARTICULAR INJECTION. P-ARTICULR ONE ×5 (10:00)
[2017-04-25] MEDS ORDERED: ePHEDrine/NS 25 MG/5 ML SYRINGE IV ONE (12:00)
[2017-04-25] MEDS ORDERED: SODIUM CHLORIDE 0.9% 20 ML VIAL IV ONE (12:00)
[2017-04-25] MEDS ORDERED: PROPOFOL 200 MG/20 ML AMP IV ONE (12:00)
[2017-04-25] MEDS ORDERED: LIDOCAINE HCL 1% PF 5 ML SYRINGE OTHER ONE (12:00)
[2017-04-25] MEDS ORDERED: ONDANSETRON HCL 4 MG/2 ML VIAL IV ONE (12:00)
[2017-04-25] MEDS ORDERED: PHENYLEPH/NS 1000 MCG/10 ML SYR IV ONE (12:00)
--- NOTE | 2017-04-25 12:12 | PD.OP ---
cc: Paresh Gerardo MD Operative Report Date of Surgery: Apr 25, 2017 Preoperative Diagnosis: Right knee severe osteoarthritis Postoperative Diagnosis: Same Procedure: Right total knee arthroplasty Anesthesia: Gen. and adductor canal block Surgeon: Paresh Gerardo Zoning Technician(s): ELINA Hines The surgical procedure was assisted by my Advanced Registered Nurse Practitioner. My COORDINATE MEASURING MACHINE TECHNICIAN presence was necessary throughout this case for the manipulation and positioning of the surgical extremity. My COORDINATE MEASURING MACHINE TECHNICIAN was assisting me throughout the duration of this procedure. The skill set of an Advance Registered Nurse Practitioner was medically necessary to complete this procedure. During the surgical case, the neurosurgical nurse was working at the back table and the Advance Registered Nurse Practitioner was directly assisting me. Operation and Findings: IMPLANTS: DePuy Attune: Patella: size 35. Femur, posterior stabilized size 7. Tibia, rotating platform size 7. Tibial insert, rotating platform, posterior stabilized size 5 mm thickness. ESTIMATED BLOOD LOSS: 100 cc TOURNIQUET TIME: 49 minutes at 250 mmHg pressure. JUSTIFICATION FOR PROCEDURE: The patient has end-stage osteoarthritis to the knee. There is an attached conservative measures pathway form in the chart that describes the nonoperative measures that were undertaken prior to consideration of surgical management. The patient understood the risks and benefits of surgical management. See my office notes for further details PROCEDURE: The patient was brought back to the operative theatre. Adequate anesthesia was obtained. The patient received intravenous vancomycin and Ancef. The lower extremity was prepped and draped in the usual sterile fashion.The leg was exsanguinated, the tourniquet was raised. A standard anterior incision was performed followed by medial parapatellar arthrotomy was performed. End-stage arthritis was identified. Osteotomy of the patella was performed. We drilled holes for the patella. We trialed the patella component. We placed an intramedullary guide into the distal femur. We ultimately resected 14 mm off of the distal femur in 5 degrees of valgus. The remnants of the ACL and PCL were resected. Osteotomy of the proximal tibia was performed, resecting 7 mm off of the medial side. This was done with 3 degrees of posterior slope using an extramedullary guide. The distal end of the guide was placed in the mid aspect of the ankle. The femur was sized, and four chamfer cuts were completed in 3 of external rotation. We then cut the central box in the distal femur to replace the PCL. We resected the remnants of the menisci and removed osteophytes off of the femur and tibia. We then trialed the knee. We punched the tibia for the keel, and then used standard technique to cement in components. Excess cement was removed. We trialed the knee again and the final polyethylene thickness was chosen to provide extension to 0 degrees, and flexion of 140 degrees to gravity. The ligaments were appropriately balanced. Lateral release was necessary to obtain excellent patellofemoral tracking. The tourniquet was released and adequate hemostasis was obtained. An intra- articular injection of a ropivacaine cocktail was injected. The posterior knee was inspected for excess cement, which was removed. The final polyethylene was put into position after thorough irrigation. We then closed deep fascia with a #2 Stratafix followed by skin with 2-0 Vicryl followed Dermabond dressing. Postop plan is to weight-bear as tolerated. DVT prophylaxis will be performed with Edith, HAYDEE bonner, early mobilization, and Lovenox followed by aspirin. Paresh Gerardo MD Apr 25, 2017 12:12
[2017-04-25] MEDS ORDERED: NORC5TAB PO (12:15)
[2017-04-25] MEDS ORDERED: BISACODYL 10 MG SUPP RECTAL PRN (12:15)
[2017-04-25] MEDS ORDERED: ASPI-146 PO (12:15)
[2017-04-25] MEDS ORDERED: ENOX40IN SQ (12:15)
[2017-04-25] MEDS ORDERED: DO NOT ADM ANY ANTICOAGULANT DRUGS PRN (12:28)
[2017-04-25] MEDS ORDERED: *morphine SULFATE 8 MG/ML PERIprocedure ONLY ONE ×3 (12:39→13:06)
[2017-04-25] MEDS: SODIUM CHLOR 0.9% 1000 ML INJ 1,000 ML IV SCH ×2 (13:00→23:29)
[2017-04-25] MEDS ORDERED: TRANEXAMIC ACID IV SCH (13:00)
[2017-04-25] MEDS ORDERED: SODIUM CHLORIDE 0.9% IV SCH (13:00)
--- NOTE | 2017-04-25 13:07 | RADRPT ---
EXAM DATE/TIME: 04/25/2017 12:53 [facility] COMPARISON: No previous studies available for comparison. INDICATIONS : Post op, right total knee replacement. MEDICAL HISTORY : None. SURGICAL HISTORY : None. ENCOUNTER: Initial ACUITY: 1 day PAIN SCORE: 0/10 LOCATION: Right knee FINDINGS: There are postop changes of right total knee replacement. Air in the soft tissues. Normal alignment. CONCLUSION: 1. Postoperative right total knee replacement. Jesus Baugh MD on April 25, 2017 at 13:05 Board Certified Radiologist. This report was verified electronically.
[2017-04-25] MEDS ORDERED: diphenhydrAMINE HCL 50 MG/ML VIAL IV PUSH PRN (14:15)
[2017-04-25] MEDS ORDERED: NALOXONE HCL 0.4 MG/ML AMP IV PUSH PRN (14:15)
--- NOTE | 2017-04-25 14:22 | HHI.DCPOC ---
Discharge Care Plan Diagnosis: (1) Primary localized osteoarthrosis, lower leg (2) Status post total knee replacement, right Your Health Problems Are: Difficulty with ADL Goals to Promote Your Health * To prevent worsening of your condition and complications * To maintain your health at the optimal level Directions to Meet Your Goals Take your medications as prescribed Follow your dietary instruction Follow activity as directed Keep your appointments as scheduled Take your immunizations and boosters as scheduled If your symptoms worsen call your PCP, if no PCP go to Urgent Care Center or Emergency Room Smoking is Dangerous to Your Health. Avoid second hand smoke Call the 24-hour hour crisis hotline for domestic abuse at [facility] David Apr 25, 2017 14:22
--- NOTE | 2017-04-25 14:23 | HHI.FF ---
Face to Face Verification Diagnosis: (1) Primary localized osteoarthrosis, lower leg (2) Status post total knee replacement, right Physical Therapy Gait training, Transfer training, bed to chair Knee: Total knee Right LE Weight Bearing: WB as tolerated Right LE Range of Motion: Active ROM Nursing Nursing: Mi chris Dressing Changes: Do not change dressing Additional Instructions First dressing change in office I have seen patient Leo Cardoso Jr Kassandra on 04/25/17. My clinical findings support the need for the requested home health care services because: Limited ability to care for self High risk of falls I certify that my clinical findings support that this patient is homebound because: Post-op weakness Unsteady gait/balance Leland David Apr 25, 2017 14:23
[2017-04-25] MEDS ORDERED: CPMMACHINE (14:25)
[2017-04-25] MEDS ORDERED: COMMODE 3-IN-11 MIS (14:25)
[2017-04-25] MEDS ORDERED: WALKER WHEELS/F1 MIS (14:25)
[2017-04-25] MEDS ORDERED: ONDANSETRON HCL 4 MG/2 ML VIAL IVP PRN (14:30)
[2017-04-25] MEDS ORDERED: ALUMINUM/MAGNESIUM/SIMETH 30 ML CUP PO PRN (14:30)
[2017-04-25] MEDS ORDERED: Post-op Orders (for Pharmacy) XX ONE (15:00)
[2017-04-25] MEDS ORDERED: ACETAMINOPHEN/HYDROcodone 325 MG/5 MG TAB PO PRN (15:00)
[2017-04-25] MEDS ORDERED: MORPHINE SULFATE 2 MG/ML INJ IV PUSH PRN (15:00)
[2017-04-25 15:15] VITALS: BP 128/69; PULSE 98; RESP 18; TEMP 96.5; O2SAT 94
[2017-04-25] MEDS: ACETAMINOPHEN/HYDROcodone 325 MG/5 MG TAB PO PRN ×3 (15:19→23:17)
--- NOTE | 2017-04-25 16:26 | PD.CONS ---
HPI Service [facility] Consult Requested By DR EDER GIBSON MD Reason for Consult MEDICAL MANAGEMENT Primary Care Physician Ramon Valencia MD Diagnoses: History of Present Illness Patient is a 66-year-old male who came in for a right total knee arthroplasty today with Dr. Gibson tolerated the procedure well. And patient is now being seen on the floor and his hospital room currently he complains of no pain but has as stated multiple times a day has already had a nerve block. Past medical history significant for hypertension osteoarthritis and multiple orthopedic surgeries on bilateral hips left knee arthroscopic surgery lumbar surgery and left shoulder skin cancer surgery as well as left eye macular surgery We have been asked to help regarding medical management here in the hospital since his primary care doctor does not come here We will order labs and follow him throughout the admission Review of Systems Constitutional: DENIES: Diaphoretic episodes, Fatigue, Fever, Weight gain, Weight loss, Chills, Dizziness, Change in appetite, Night Sweats Endocrine: DENIES: Heat/cold intolerance, Polydipsia, Polyuria, Polyphagia Eyes: DENIES: Blurred vision, Diplopia, Eye inflammation, Eye pain, Vision loss Ears, nose, mouth, throat: DENIES: Tinnitus, Hearing loss, Vertigo, Nasal discharge, Oral lesions, Throat pain Respiratory: DENIES: Apneas, Cough, Snoring, Wheezing, Hemoptysis, Sputum production Cardiovascular: DENIES: Chest pain, Palpitations, Syncope, Dyspnea on Exertion , PND Gastrointestinal: DENIES: Abdominal pain, Black stools, Bloody stools, Constipation Genitourinary: DENIES: Sexual dysfunction, Urinary frequency, Urinary incontinence Musculoskeletal: DENIES: Joint pain, Muscle aches, Stiffness, Joint Swelling Integumentary: DENIES: Abnormal pigmentation, Nail changes, Pruritus Hematologic/lymphatic: DENIES: Bruising, Lymphadenopathy Immunologic/allergic: DENIES: Eczema, Urticaria Neurologic: DENIES: Abnormal gait, Headache, Localized weakness Psychiatric: DENIES: Anxiety, Confusion, Mood changes, Depression Except as stated in HPI: all other systems reviewed are Neg Past Family Social History Allergies: Coded Allergies: No Known Allergies (Verified Allergy, Unknown, 04/25/17) Past Medical History Osteoarthritis COPD/tobacco abuse Skin cancer Back surgery Past Surgical History Bilateral total hip repair Left knee arthroscopic surgery Right total knee arthroplasty today Macular degeneration surgery left eye Skin cancer removal left arm Lumbar surgery Reported Medications Reported Meds & Active Scripts Active Enoxaparin Inj (Enoxaparin Sodium) 40 Mg/0.4 Ml Syr 40 Mg SQ DAILY Start Aspirin after Lovenox is completed. Ecotrin Regular Strength (Aspirin) 325 Mg Tabdr 325 Mg PO DAILY Start Aspirin after Lovenox is completed. [place] (Hydrocodone-Acetaminophen) 5 Mg-325 Mg Tab 1-2 Tab PO Q4H PRN Start Aspirin after Lovenox is completed. Reported Norvasc (Amlodipine Besylate) 5 Mg Tab 5 Mg PO HS Goody's Ex-Str Powder Packet (Aspirin/Acetaminophen/Caffeine) 500 Mg-325 Mg-65 Mg Powd.pack 550 Mg PO DAILY Daypro (Oxaprozin) 600 Mg Tab 800 Mg PO Q12HR Active Ordered Medications Current Medications Lactated Ringer's 1,000 ml @ 30 mls/hr Q24H PRN IV SEE LABEL COMMENTS Last administered on 04/25/17 08:00; Start 04/25/17 at 08:30; Stop 04/28/17 at 08 :29 Sodium Chloride 500 ml @ 30 mls/hr [id number] PRN IV SEE LABEL COMMENTS; Start at 08:30; Stop 04/28/17 at 08:29 Metoprolol Tartrate (Lopressor) 25 mg TECHNICAL PHOTOGRAPHER PRN PO SEE LABEL COMMENTS; Start 04/25/17 at 08:30; Stop 04/28/17 at 08:29 Povidone Iodine (Betadine 5% Antisepsis Kit) 1 applic TECHNICAL PHOTOGRAPHER PRN EACH NARE SEE LABEL COMMENTS Last administered on 04/25/17 08:50; Start 04/25/17 at 08: 30; Stop 04/28/17 at 08:29 Chlorhexidine Gluconate (Chlorhexidine 2% Cloth) 3 pack TECHNICAL PHOTOGRAPHER PRN TOPICAL SEE LABEL COMMENTS Last administered on 04/25/17 06:30; Start 04/25/17 at 08: 30; Stop 04/28/17 at 08:29 Povidone Iodine (Betadine 7.5% Scrub) 1 applic TECHNICAL PHOTOGRAPHER TOPICAL ; Start at 08:45; Stop 04/25/17 at 08:46; Status Cancel Cefazolin Sodium/ Dextrose 50 ml @ 100 mls/hr TECHNICAL PHOTOGRAPHER IV Last administered on 04/25/17 10:09; Start 04/25/17 at 08:45; Stop 04/28/17 at 08:44 Vancomycin HCl 1000 mg/Sodium Chloride 250 ml @ 250 mls/hr TECHNICAL PHOTOGRAPHER IV Last administered on 04/25/17 10:08; Start 04/25/17 at 08:45; Stop 04/28/17 at 08 :44 Tranexamic Acid 871 mg/Sodium Chloride 108.71 ml @ 200 mls/ hr ONCE ONCE IV Last administered on 04/25/17 10:27; Start 04/25/17 at 10:00; Stop 04/25/17 at 10:32; Status DC Ropivacaine 24.63 ml/Ketorolac Tromethamine 30 mg/Epinephrine HCl 0.5 mg/ Clonidine 80 mcg/ Sodium Chloride 100 ml @ 200 mls/hr ONCE ONCE P-ARTICULR Last administered on 04/25/17 11:49; Start 04/25/17 at 10:00; Stop 04/25/17 at 10:29; Status DC Dexamethasone Sodium Phosphate (Decadron Inj) 20 mg STK-MED ONCE .ROUTE ; Start 04/25/17 at 08:30; Stop 04/25/17 at 08:31; Status DC Sodium Chloride 250 ml @ As Directed STK-MED ONCE .ROUTE ; Start 04/25/17 at 08:30; Stop 04/25/17 at 08:31; Status DC Cefazolin Sodium/ Dextrose 50 ml @ As Directed STK-MED ONCE .ROUTE ; Start at 08:30; Stop 04/25/17 at 08:31; Status DC Vancomycin HCl (Vancomycin Inj) 1,000 mg STK-MED ONCE .ROUTE Last administered on 04/25/17 10:07; Start 04/25/17 at 08:30; Stop 04/25/17 at 08:31; Status DC Dexamethasone Sodium Phosphate (Decadron Inj) 10 mg TECHNICAL PHOTOGRAPHER IV Last administered on 04/25/17 08:45; Start 04/25/17 at 08:45; Stop 04/26/17 at 08 :44 Acetaminophen 100 ml @ As Directed STK-MED ONCE IV ; Start 04/25/17 at 09:23; Stop 04/25/17 at 09:24; Status DC Bupivacaine Liposome (Exparel Pf 1.3% Inj) 20 ml STK-MED ONCE .ROUTE ; Start at 09:23; Stop 04/25/17 at 09:24; Status DC Gentamicin Sulfate (Gentamicin Inj) 240 mg STK-MED ONCE .ROUTE Last administered on 04/25/17 10:59; Start 04/25/17 at 09:45; Stop 04/25/17 at 09 :46; Status DC Povidone Iodine (Betadine 7.5% Scrub) 1 applic TECHNICAL PHOTOGRAPHER TOPICAL ; Start at 10:30; Stop 04/26/17 at 10:29 Amlodipine Besylate (Norvasc) 5 mg HS PO ; Start 04/25/17 at 21:00 Sodium Chloride 1,000 ml @ 100 mls/hr Q10H IV Last administered on 04/25/17 13:00; Start 04/25/17 at 14:15 Cefazolin Sodium 1000 mg/Sodium Chloride 100 ml @ 200 mls/hr Q6H IV Last administered on 04/25/17 15:19; Start 04/25/17 at 16:00; Stop 04/26/17 at 04 :29 Miscellaneous Information (Post-op Orders (for Pharmacy)) STAT ONCE XX ; Start 04/25/17 at 15:00; Stop 04/25/17 at 15:01; Status DC Dexamethasone Sodium Phosphate (Decadron Inj) 10 mg ONCE ONCE IV ; Start 04/26 at 07:45; Stop 04/26/17 at 07:46 Enoxaparin Sodium (Lovenox Inj) 40 mg Q24H SQ ; Start 04/26/17 at 12:00; Stop 05/05/17 at 12:01 Acetaminophen/ Hydrocodone Bitart ([place] 5-325 Mg) 1 tab Q4H PRN PO PAIN LESS THAN 5 ON SCALE; Start 04/25/17 at 15:00 Acetaminophen/ Hydrocodone Bitart ([place] 5-325 Mg) 2 tab Q4H PRN PO PAIN SCALE 5 TO 10 Last administered on 04/25/17 15:19; Start 04/25/17 at 15:00 Tranexamic Acid 871 mg/Sodium Chloride 108.71 ml @ 200 mls/ hr UNSCH IV Last administered on 04/25/17 13:08; Start 04/25/17 at 13:00; Stop 04/25/17 at 19 :00 Multivitamins/ Minerals Therapeutic (Theragran M Tab) 1 tab BID PO ; Start at 21:00; Stop 06/25/17 at 20:59 Ondansetron HCl (Zofran Inj) 4 mg Q6H PRN IVP NAUSEA OR VOMITING; Start at 14:30 Docusate Sodium (Colace) 100 mg BID PO ; Start 04/26/17 at 21:00 Al Hydrox/Mg Hydrox/Simethicone (Mag-Al Plus Susp Liq) 30 ml Q6H PRN PO INDIGESTION; Start 04/25/17 at 14:30 Zolpidem Tartrate (Ambien) 5 mg HS PRN PO SLEEP; Start 04/25/17 at 21:00 Bisacodyl (Dulcolax Supp) 10 mg DAILY PRN AR CONSTIPATION; Start 04/25/17 at 12:15; Status UNV Magnesium Hydroxide (Milk Of Magnesia Liq) 30 ml DAILY PRN PO CONSTIPATION; Start 04/25/17 at 12:15; Status UNV Naloxone HCl (Narcan Inj) 0.4 mg UNSCH PRN IV PUSH RESPIRATORY RATE LESS THAN 10; Start 04/25/17 at 14:15 Diphenhydramine HCl (Benadryl Inj) 25 mg Q6H PRN IV PUSH ITCHING; Start at 14:15 Morphine Sulfate (Morphine Inj) 2 mg Q3H PRN IV PUSH pain greater than 5; Start 04/25/17 at 15:00 Morphine Sulfate (*morphine INJ PERIprocedure ONLY) 8 mg STK-MED ONCE .ROUTE Last administered on 04/25/17 12:39; Start 04/25/17 at 12:39; Stop 04/25/17 at 12:40; Status DC Morphine Sulfate (*morphine INJ PERIprocedure ONLY) 8 mg STK-MED ONCE .ROUTE Last administered on 04/25/17 12:52; Start 04/25/17 at 12:52; Stop 04/25/17 at 12:53; Status DC Morphine Sulfate (*morphine INJ PERIprocedure ONLY) 8 mg STK-MED ONCE .ROUTE Last administered on 04/25/17 13:06; Start 04/25/17 at 13:06; Stop 04/25/17 at 13:07; Status DC Miscellaneous Information ALL NURSING DEPARTME... UNSCH PRN .XX SEE LABEL COMMENTS; Start 04/25/17 at 12:28; Stop 04/26/17 at 12:27 Family History Hypertension Probable COPD and tobacco abuse Osteoarthritis Social History Occasional alcoholic beverage not daily Previous smoking history of a pack of unfiltered camels probably smoked 35+ years unfiltered camels Denies any illicits Lives alone Physical Exam Vital Signs Vital Signs Date Time Temp Pulse Resp B/P (MAP) Pulse Ox O2 Delivery O2 Flow Rate FiO2 04/25/17 14:45 97.6 95 16 138/75 (96) 96 Room Air 04/25/17 14:00 97 16 137/70 (92) 95 Room Air 04/25/17 13:30 97.8 98 16 135/68 (90) 94 Room Air 04/25/17 13:15 100 15 137/69 (91) 99 Nasal Cannula 2 04/25/17 13:11 15 04/25/17 13:00 98 15 144/72 (96) 98 Nasal Cannula 2 04/25/17 12:57 15 04/25/17 12:45 94 15 136/69 (91) 100 Nasal Cannula 4 04/25/17 12:44 15 04/25/17 12:44 15 04/25/17 12:30 98.1 98 15 131/70 (90) 97 Nasal Cannula 4 Physical Exam GENERAL: This is a well-nourished, well-developed patient, in no apparent distress. SKIN: No rashes, ecchymoses or lesions. Cool and dry. HEAD: Atraumatic. Normocephalic. No temporal or scalp tenderness. EYES: Pupils equal round and reactive. Extraocular motions intact. No scleral icterus. No injection or drainage. ENT: Nose without bleeding, purulent drainage or septal hematoma. Throat without erythema, tonsillar hypertrophy or exudate. Uvula midline. Airway patent. NECK: Trachea midline. No JVD or lymphadenopathy. Supple, nontender, no meningeal signs. CARDIOVASCULAR: Regular rate and rhythm without murmurs, gallops, or rubs. S1 and S2 no S3 or S4 RESPIRATORY: Clear to auscultation. Breath sounds equal bilaterally. No wheezes , rales, or rhonchi. GASTROINTESTINAL: Abdomen soft, non-tender, nondistended. No hepato-splenomegaly , or palpable masses. No guarding. MUSCULOSKELETAL: Extremities without clubbing, cyanosis, or edema. No joint tenderness, effusion, or edema noted. No calf tenderness. Negative Homans sign bilaterally. Right knee is dressed NEUROLOGICAL: Awake and alert. Cranial nerves II through XII intact. Motor and sensory grossly within normal limits. Five out of 5 muscle strength in all muscle groups. Normal speech. Insight and judgment is good Mood and behaviors appropriate Imaging Last Impressions Knee X-Ray 04/25/17 1205 Signed Impressions: Service Date/Time: Tuesday, April 25, 2017 12:53 - CONCLUSION: 1. Postoperative right total knee replacement. Jesus Baugh MD Assessment and Plan Assessment and Plan Status post right total knee arthroplasty today by Dr. Gibson Continue pain control PT and OT Patient plans are going to rehabilitation after discharge Osteoarthritis with history of left total hip arthroplasty, right total hip arthroplasty left knee arthroscopic surgery lumbar surgery Continue physical therapy and occupational therapy Hypertension resume home medications Tobacco abuse/COPD history Duo nebs as needed Incentive spirometry A.m. labs we'll check TSH free T4 hemoglobin A1c magnesium and phosphorus CBC and CMP in a.m. We'll monitor for any other issues that arise Code Status Full code Discussed Condition With RN AND PATIENT JettParas cho Zohreh VALADEZ Apr 25, 2017 16:26
[2017-04-25] MEDS ORDERED: RESP: ALBUTEROL 2.5 MG/IPRATROPIUM 0.5 MG NEB (PRN) NEB (16:30)
[2017-04-25] MEDS ORDERED: cloNIDine HCL 0.1 MG TAB PO PRN (16:30)
[2017-04-25] MEDS ORDERED: MAGNESIUM HYDROXIDE SUSP 30 ML CUP PO PRN (18:00)
[2017-04-25 19:23] VITALS: BP 135/67; PULSE 89; RESP 18; TEMP 98.1; O2SAT 95
[2017-04-25] MEDS ORDERED: ZOLPIDEM TARTRATE 5 MG TAB PO PRN (21:00)
[2017-04-25] MEDS ORDERED: amLODIPine BESYLATE 5 MG TAB PO SCH (21:00)
[2017-04-26] VITALS: BP 135/67; PULSE 90; RESP 20; TEMP 97; O2SAT 97
[2017-04-26] MEDS: ACETAMINOPHEN/HYDROcodone 325 MG/5 MG TAB PO PRN ×4 (03:23→15:55)
[2017-04-26 04:00] VITALS: BP 116/61; PULSE 74; RESP 20; TEMP 97.7; O2SAT 97
[2017-04-26 07:13] LABS: ANION GAP 6 MEQ/L (5-15); AST (GOT) 16 U/L (15-37); BICARBONATE 26.6 MEQ/L (21.0-32.0); BLOOD UREA NITROGEN 22 MG/DL (7-18); CHLORIDE 110 MEQ/L (98-107); GLOMERULAR FILTRATION RATE 90 ML/MIN (>89); MAGNESIUM 2.1 MG/DL (1.5-2.5); POTASSIUM 4.4 MEQ/L (3.5-5.1); SODIUM (NA) 143 MEQ/L (136-145)
[2017-04-26 07:14] LABS: AUTOMATED NEUTROPHIL # 9.3 TH/MM3 (1.8-7.7); BASOPHIL % 0.2 % (0.0-2.0); EOSINOPHIL % 0.2 % (0.0-4.0); HEMATOCRIT 33.6 % (39.0-51.0); HEMO FLAGS DIFF FINAL; LYMPH % 11.5 % (9.0-44.0); LYMPHOCYTE # 1.4 TH/MM3 (1.0-4.8); MEAN CELL VOLUME 88.1 FL (80.0-100.0); MEAN CORPUSCULAR HEMOGLOBIN 29.9 PG (27.0-34.0); MONO % 9.1 % (0.0-8.0); PLATELET COUNT 264 TH/MM3 (150-450); RED BLOOD COUNT 3.82 MIL/MM3 (4.50-5.90); RED CELL DISTRIBUTION WIDTH 15.3 % (11.6-17.2); WHITE BLOOD COUNT 11.7 TH/MM3 (4.0-11.0)
[2017-04-26 07:23] LABS: ALKALINE PHOSPHATASE 52 U/L (45-117); ALT (GPT) 17 U/L (12-78); FREE T4 1.29 NG/DL (0.76-1.46); TOTAL BILIRUBIN ADULT 0.3 MG/DL (0.2-1.0)
[2017-04-26] MEDS ORDERED: DEXAMETHASONE SOD PHOS 20 MG/5 ML VIAL IV ONE (07:45)
[2017-04-26 08:00] VITALS: BP 128/69; PULSE 78; RESP 18; TEMP 98; O2SAT 95
--- NOTE | 2017-04-26 10:03 | HHI.PR ---
Subjective Remarks Patient is a 66-year-old male who came in for a right total knee arthroplasty today with Dr. Gerardo tolerated the procedure well. And patient is now being seen on the floor and his hospital room currently he complains of no pain but has as stated multiple times a day has already had a nerve block. Past medical history significant for hypertension osteoarthritis and multiple orthopedic surgeries on bilateral hips left knee arthroscopic surgery lumbar surgery and left shoulder skin cancer surgery as well as left eye macular surgery We have been asked to help regarding medical management here in the hospital since his primary care doctor does not come here We will order labs and follow him throughout the admission 04-26 COMPLAINS OF PAIN IN RIGHT KNEE THINKS THE PAIN IS LESS THAN WHEN HE HAD HIS HIPS DONE NO NAUSEA, NO VOMITING, NO FEVERS, NO SOB, NO CHEST PAIN Objective Vitals Vital Signs Date Time Temp Pulse Resp B/P (MAP) Pulse Ox O2 Delivery O2 Flow Rate FiO2 04/26/17 08:15 18 04/26/17 08:00 98.0 78 18 128/69 (88) 95 04/26/17 04:00 97.7 74 20 116/61 (79) 97 04/26/17 00:00 97.0 90 20 135/67 (89) 97 04/25/17 19:23 98.1 89 18 135/67 (89) 95 04/25/17 15:15 96.5 98 18 128/69 (88) 94 04/25/17 14:45 97.6 95 16 138/75 (96) 96 Room Air 04/25/17 14:00 97 16 137/70 (92) 95 Room Air 04/25/17 13:30 97.8 98 16 135/68 (90) 94 Room Air 04/25/17 13:15 100 15 137/69 (91) 99 Nasal Cannula 2 04/25/17 13:11 15 04/25/17 13:00 98 15 144/72 (96) 98 Nasal Cannula 2 04/25/17 12:57 15 04/25/17 12:45 94 15 136/69 (91) 100 Nasal Cannula 4 04/25/17 12:44 15 04/25/17 12:44 15 04/25/17 12:30 98.1 98 15 131/70 (90) 97 Nasal Cannula 4 I/O 12/20/17 12/20/04/25/17 04/26/17 04/26/17 04/26/17 07:00 15:00 23:00 07:00 15:00 23:00 Intake Total 1108.71 ml 460 ml 420 ml Output Total 550 ml 500 ml 680 ml Balance 558.71 ml -40 ml -260 ml Intake Oral 360 ml 420 ml IV Total 108.71 ml 100 ml Other 1000 ml Output Urine Total 450 ml 500 ml 680 ml Estimated Blood Loss 100 ml # Voids 1 # Bowel Movements 0 0 Result Diagram: 04/26/17 0600 04/26/17 0600 Other Results Laboratory Tests Test 04/26/17 06:00 White Blood Count 11.7 TH/MM3 Red Blood Count 3.82 MIL/MM3 Hemoglobin 11.4 GM/DL Hematocrit 33.6 % Mean Corpuscular Volume 88.1 FL Mean Corpuscular Hemoglobin 29.9 PG Mean Corpuscular Hemoglobin Concent 34.0 % Red Cell Distribution Width 15.3 % Platelet Count 264 TH/MM3 Mean Platelet Volume 7.6 FL Neutrophils (%) (Auto) 79.0 % Lymphocytes (%) (Auto) 11.5 % Monocytes (%) (Auto) 9.1 % Eosinophils (%) (Auto) 0.2 % Basophils (%) (Auto) 0.2 % Neutrophils # (Auto) 9.3 TH/MM3 Lymphocytes # (Auto) 1.4 TH/MM3 Monocytes # (Auto) 1.1 TH/MM3 Eosinophils # (Auto) 0.0 TH/MM3 Basophils # (Auto) 0.0 TH/MM3 CBC Comment DIFF FINAL Differential Comment Blood Urea Nitrogen 22 MG/DL Creatinine 0.86 MG/DL Random Glucose 93 MG/DL Total Protein 5.6 GM/DL Albumin 2.9 GM/DL Calcium Level 7.7 MG/DL Phosphorus Level 3.1 MG/DL Magnesium Level 2.1 MG/DL Alkaline Phosphatase 52 U/L Aspartate Amino Transf (AST/SGOT) 16 U/L Alanine Aminotransferase (ALT/SGPT) 17 U/L Total Bilirubin 0.3 MG/DL Sodium Level 143 MEQ/L Potassium Level 4.4 MEQ/L Chloride Level 110 MEQ/L Carbon Dioxide Level 26.6 MEQ/L Anion Gap 6 MEQ/L Estimat Glomerular Filtration Rate 90 ML/MIN Free Thyroxine 1.29 NG/DL Thyroid Stimulating Hormone 3rd Gen 0.449 uIU/ML Imaging Last Impressions Knee X-Ray 04/25/17 1205 Signed Impressions: Service Date/Time: Tuesday, April 25, 2017 12:53 - CONCLUSION: 1. Postoperative right total knee replacement. Jesus Baugh MD Objective Remarks GENERAL: This is a well-nourished, well-developed patient, in no apparent distress. SKIN: No rashes, ecchymoses or lesions. Cool and dry. HEAD: Atraumatic. Normocephalic. No temporal or scalp tenderness. EYES: Pupils equal round and reactive. Extraocular motions intact. No scleral icterus. No injection or drainage. ENT: Nose without bleeding, purulent drainage or septal hematoma. Throat without erythema, tonsillar hypertrophy or exudate. Uvula midline. Airway patent. NECK: Trachea midline. No JVD or lymphadenopathy. Supple, nontender, no meningeal signs. CARDIOVASCULAR: Regular rate and rhythm without murmurs, gallops, or rubs. S1 and S2 no S3 or S4 RESPIRATORY: Clear to auscultation. Breath sounds equal bilaterally. No wheezes , rales, or rhonchi. GASTROINTESTINAL: Abdomen soft, non-tender, nondistended. No hepato-splenomegaly , or palpable masses. No guarding. MUSCULOSKELETAL: Extremities without clubbing, cyanosis, or edema. No joint tenderness, effusion, or edema noted. No calf tenderness. Negative Homans sign bilaterally. Right knee is dressed NEUROLOGICAL: Awake and alert. Cranial nerves II through XII intact. Motor and sensory grossly within normal limits. Five out of 5 muscle strength in all muscle groups. Normal speech. Insight and judgment is good Mood and behaviors appropriate Procedures cc: Paresh Gerardo MD Operative Report Date of Surgery: Apr 25, 2017 Preoperative Diagnosis: Right knee severe osteoarthritis Postoperative Diagnosis: Same Procedure: Right total knee arthroplasty Anesthesia: Gen. and adductor canal block Surgeon: Paresh Gerardo People Manager(s): ELINA Hines The surgical procedure was assisted by my Advanced Registered Nurse Practitioner. My TITLE ONE TEACHER presence was necessary throughout this case for the manipulation and positioning of the surgical extremity. My TITLE ONE TEACHER was assisting me throughout the duration of this procedure. The skill set of an Advance Registered Nurse Practitioner was medically necessary to complete this procedure. During the surgical case, the certified ophthalmic surgical assistant was working at the back table and the Advance Registered Nurse Practitioner was directly assisting me. Operation and Findings: IMPLANTS: DePuy Attune: Patella: size 35. Femur, posterior stabilized size 7. Tibia, rotating platform size 7. Tibial insert, rotating platform, posterior stabilized size 5 mm thickness. ESTIMATED BLOOD LOSS: 100 cc TOURNIQUET TIME: 49 minutes at 250 mmHg pressure. JUSTIFICATION FOR PROCEDURE: The patient has end-stage osteoarthritis to the knee. There is an attached conservative measures pathway form in the chart that describes the nonoperative measures that were undertaken prior to consideration of surgical management. The patient understood the risks and benefits of surgical management. See my office notes for further details PROCEDURE: The patient was brought back to the operative theatre. Adequate anesthesia was obtained. The patient received intravenous vancomycin and Ancef. The lower extremity was prepped and draped in the usual sterile fashion.The leg was exsanguinated, the tourniquet was raised. A standard anterior incision was performed followed by medial parapatellar arthrotomy was performed. End-stage arthritis was identified. Osteotomy of the patella was performed. We drilled holes for the patella. We trialed the patella component. We placed an intramedullary guide into the distal femur. We ultimately resected 14 mm off of the distal femur in 5 degrees of valgus. The remnants of the ACL and PCL were resected. Osteotomy of the proximal tibia was performed, resecting 7 mm off of the medial side. This was done with 3 degrees of posterior slope using an extramedullary guide. The distal end of the guide was placed in the mid aspect of the ankle. The femur was sized, and four chamfer cuts were completed in 3 of external rotation. We then cut the central box in the distal femur to replace the PCL. We resected the remnants of the menisci and removed osteophytes off of the femur and tibia. We then trialed the knee. We punched the tibia for the keel, and then used standard technique to cement in components. Excess cement was removed. We trialed the knee again and the final polyethylene thickness was chosen to provide extension to 0 degrees, and flexion of 140 degrees to gravity. The ligaments were appropriately balanced. Lateral release was necessary to obtain excellent patellofemoral tracking. The tourniquet was released and adequate hemostasis was obtained. An intra- articular injection of a ropivacaine cocktail was injected. The posterior knee was inspected for excess cement, which was removed. The final polyethylene was put into position after thorough irrigation. We then closed deep fascia with a #2 Stratafix followed by skin with 2-0 Vicryl followed Dermabond dressing. Postop plan is to weight-bear as tolerated. DVT prophylaxis will be performed with SCDs, HAYDEE bonner, early mobilization, and Lovenox followed by aspirin. Paresh Gerardo MD Apr 25, 2017 12:12 Medications and IVs Current Medications Lactated Ringer's 1,000 ml @ 30 mls/hr Q24H PRN IV SEE LABEL COMMENTS Last administered on 04/25/17 08:00; Start 04/25/17 at 08:30; Stop 04/28/17 at 08 :29 Sodium Chloride 500 ml @ 30 mls/hr [id number] PRN IV SEE LABEL COMMENTS; Start at 08:30; Stop 04/28/17 at 08:29 Metoprolol Tartrate (Lopressor) 25 mg BIOPSYCHOLOGIST PRN PO SEE LABEL COMMENTS; Start 04/25/17 at 08:30; Stop 04/28/17 at 08:29 Povidone Iodine (Betadine 5% Antisepsis Kit) 1 applic BIOPSYCHOLOGIST PRN EACH NARE SEE LABEL COMMENTS Last administered on 04/25/17 08:50; Start 04/25/17 at 08: 30; Stop 04/28/17 at 08:29 Chlorhexidine Gluconate (Chlorhexidine 2% Cloth) 3 pack BIOPSYCHOLOGIST PRN TOPICAL SEE LABEL COMMENTS Last administered on 04/25/17 06:30; Start 04/25/17 at 08: 30; Stop 04/28/17 at 08:29 Povidone Iodine (Betadine 7.5% Scrub) 1 applic BIOPSYCHOLOGIST TOPICAL ; Start at 08:45; Stop 04/25/17 at 08:46; Status Cancel Cefazolin Sodium/ Dextrose 50 ml @ 100 mls/hr BIOPSYCHOLOGIST IV Last administered on 04/25/17 10:09; Start 04/25/17 at 08:45; Stop 04/28/17 at 08:44 Vancomycin HCl 1000 mg/Sodium Chloride 250 ml @ 250 mls/hr BIOPSYCHOLOGIST IV Last administered on 04/25/17 10:08; Start 04/25/17 at 08:45; Stop 04/28/17 at 08 :44 Tranexamic Acid 871 mg/Sodium Chloride 108.71 ml @ 200 mls/ hr ONCE ONCE IV Last administered on 04/25/17 10:27; Start 04/25/17 at 10:00; Stop 04/25/17 at 10:32; Status DC Ropivacaine 24.63 ml/Ketorolac Tromethamine 30 mg/Epinephrine HCl 0.5 mg/ Clonidine 80 mcg/ Sodium Chloride 100 ml @ 200 mls/hr ONCE ONCE P-ARTICULR Last administered on 04/25/17 11:49; Start 04/25/17 at 10:00; Stop 04/25/17 at 10:29; Status DC Dexamethasone Sodium Phosphate (Decadron Inj) 20 mg STK-MED ONCE .ROUTE ; Start 04/25/17 at 08:30; Stop 04/25/17 at 08:31; Status DC Sodium Chloride 250 ml @ As Directed STK-MED ONCE .ROUTE ; Start 04/25/17 at 08:30; Stop 04/25/17 at 08:31; Status DC Cefazolin Sodium/ Dextrose 50 ml @ As Directed STK-MED ONCE .ROUTE ; Start at 08:30; Stop 04/25/17 at 08:31; Status DC Vancomycin HCl (Vancomycin Inj) 1,000 mg STK-MED ONCE .ROUTE Last administered on 04/25/17 10:07; Start 04/25/17 at 08:30; Stop 04/25/17 at 08:31; Status DC Dexamethasone Sodium Phosphate (Decadron Inj) 10 mg BIOPSYCHOLOGIST IV Last administered on 04/25/17 08:45; Start 04/25/17 at 08:45; Stop 04/26/17 at 08 :44; Status DC Acetaminophen 100 ml @ As Directed STK-MED ONCE IV ; Start 04/25/17 at 09:23; Stop 04/25/17 at 09:24; Status DC Bupivacaine Liposome (Exparel Pf 1.3% Inj) 20 ml STK-MED ONCE .ROUTE ; Start at 09:23; Stop 04/25/17 at 09:24; Status DC Gentamicin Sulfate (Gentamicin Inj) 240 mg STK-MED ONCE .ROUTE Last administered on 04/25/17 10:59; Start 04/25/17 at 09:45; Stop 04/25/17 at 09 :46; Status DC Povidone Iodine (Betadine 7.5% Scrub) 1 applic BIOPSYCHOLOGIST TOPICAL ; Start at 10:30; Stop 04/26/17 at 10:29 Amlodipine Besylate (Norvasc) 5 mg HS PO Last administered on 04/25/17 20:50 ; Start 04/25/17 at 21:00 Sodium Chloride 1,000 ml @ 100 mls/hr Q10H IV Last administered on 04/25/17 23:29; Start 04/25/17 at 14:15 Cefazolin Sodium 1000 mg/Sodium Chloride 100 ml @ 200 mls/hr Q6H IV Last administered on 04/26/17 03:23; Start 04/25/17 at 16:00; Stop 04/26/17 at 04 :29; Status DC Miscellaneous Information (Post-op Orders (for Pharmacy)) STAT ONCE XX ; Start 04/25/17 at 15:00; Stop 04/25/17 at 15:01; Status DC Dexamethasone Sodium Phosphate (Decadron Inj) 10 mg ONCE ONCE IV Last administered on 04/26/17 08:17; Start 04/26/17 at 07:45; Stop 04/26/17 at 07 :46; Status DC Enoxaparin Sodium (Lovenox Inj) 40 mg Q24H SQ ; Start 04/26/17 at 12:00; Stop 05/05/17 at 12:01 Acetaminophen/ Hydrocodone Bitart (Rye 5-325 Mg) 1 tab Q4H PRN PO PAIN LESS THAN 5 ON SCALE; Start 04/25/17 at 15:00 Acetaminophen/ Hydrocodone Bitart (Rye 5-325 Mg) 2 tab Q4H PRN PO PAIN SCALE 5 TO 10 Last administered on 04/26/17 07:15; Start 04/25/17 at 15:00 Tranexamic Acid 871 mg/Sodium Chloride 108.71 ml @ 200 mls/ hr UNSCH IV Last administered on 04/25/17 13:08; Start 04/25/17 at 13:00; Stop 04/25/17 at 19 :00; Status DC Multivitamins/ Minerals Therapeutic (Theragran M Tab) 1 tab BID PO ; Start at 21:00; Stop 06/25/17 at 20:59 Ondansetron HCl (Zofran Inj) 4 mg Q6H PRN IVP NAUSEA OR VOMITING; Start at 14:30 Docusate Sodium (Colace) 100 mg BID PO ; Start 04/26/17 at 21:00 Al Hydrox/Mg Hydrox/Simethicone (Mag-Al Plus Susp Liq) 30 ml Q6H PRN PO INDIGESTION; Start 04/25/17 at 14:30 Zolpidem Tartrate (Ambien) 5 mg HS PRN PO SLEEP; Start 04/25/17 at 21:00 Bisacodyl (Dulcolax Supp) 10 mg DAILY PRN RECTAL CONSTIPATION; Start 04/25/17 at 12:15 Magnesium Hydroxide (Milk Of Magnesia Liq) 30 ml DAILY PRN PO CONSTIPATION; Start 04/25/17 at 18:00 Naloxone HCl (Narcan Inj) 0.4 mg UNSCH PRN IV PUSH RESPIRATORY RATE LESS THAN 10; Start 04/25/17 at 14:15 Diphenhydramine HCl (Benadryl Inj) 25 mg Q6H PRN IV PUSH ITCHING; Start at 14:15 Morphine Sulfate (Morphine Inj) 2 mg Q3H PRN IV PUSH pain greater than 5; Start 04/25/17 at 15:00 Morphine Sulfate (*morphine INJ PERIprocedure ONLY) 8 mg STK-MED ONCE .ROUTE Last administered on 04/25/17 12:39; Start 04/25/17 at 12:39; Stop 04/25/17 at 12:40; Status DC Morphine Sulfate (*morphine INJ PERIprocedure ONLY) 8 mg STK-MED ONCE .ROUTE Last administered on 04/25/17 12:52; Start 04/25/17 at 12:52; Stop 04/25/17 at 12:53; Status DC Morphine Sulfate (*morphine INJ PERIprocedure ONLY) 8 mg STK-MED ONCE .ROUTE Last administered on 04/25/17 13:06; Start 04/25/17 at 13:06; Stop 04/25/17 at 13:07; Status DC Miscellaneous Information ALL NURSING DEPARTME... UNSCH PRN .XX SEE LABEL COMMENTS; Start 04/25/17 at 12:28; Stop 04/26/17 at 12:27 Clonidine (Catapres) 0.1 mg Q4H PRN PO SBP>160, DBP>90; Start 04/25/17 at 16: 30 Albuterol/ Ipratropium (Duoneb Neb) 1 ampule Q4HR NEB PRN NEB SHORTNESS OF BREATH; Start 04/25/17 at 16:30 A/P Assessment and Plan Status post right total knee arthroplasty today by Dr. Gerardo Continue pain control PT and OT Patient plans are going to rehabilitation after discharge Osteoarthritis with history of left total hip arthroplasty, right total hip arthroplasty left knee arthroscopic surgery lumbar surgery Continue physical therapy and occupational therapy Hypertension resume home medications Tobacco abuse/COPD history Duo nebs as needed Incentive spirometry A.m. labs we'll check TSH free T4 hemoglobin A1c magnesium and phosphorus CBC and CMP in a.m. LEUKOCYTOSIS SUSPECTED REACTIVE CHECK AM LABS DW RN AND PT We'll monitor for any other issues that arise Discharge Planning ONCE CLEARED FOR SNF Paras Yo DO Apr 26, 2017 10:03
[2017-04-26] MEDS: SODIUM CHLOR 0.9% 1000 ML INJ 1,000 ML IV SCH (10:15)
[2017-04-26 12:00] VITALS: BP 138/74; PULSE 90; RESP 18; TEMP 97.6; O2SAT 96
[2017-04-26] MEDS ORDERED: ENOXAPARIN SODIUM 40 MG/0.4 ML SYRINGE SQ SCH (12:00)
--- NOTE | 2017-04-26 13:06 | PD.ORT.PN ---
Subjective Post Op Day #: 1 Subjective Remarks Patient is OOB ambulating in the [place]ers. Patient reports more soreness than pain to the right knee. Objective Vitals Vital Signs Date Time Temp Pulse Resp B/P (MAP) Pulse Ox O2 Delivery O2 Flow Rate FiO2 04/26/17 12:00 97.6 90 18 138/74 (95) 96 04/26/17 08:15 18 04/26/17 08:00 98.0 78 18 128/69 (88) 95 04/26/17 04:00 97.7 74 20 116/61 (79) 97 04/26/17 00:00 97.0 90 20 135/67 (89) 97 04/25/17 19:23 98.1 89 18 135/67 (89) 95 04/25/17 15:15 96.5 98 18 128/69 (88) 94 04/25/17 14:45 97.6 95 16 138/75 (96) 96 Room Air 04/25/17 14:00 97 16 137/70 (92) 95 Room Air 04/25/17 13:30 97.8 98 16 135/68 (90) 94 Room Air 04/25/17 13:15 100 15 137/69 (91) 99 Nasal Cannula 2 04/25/17 13:11 15 I/O 04/25/17 04/25/17 04/25/17 04/26/17 04/26/17 04/26/17 07:00 15:00 23:00 07:00 15:00 23:00 Intake Total 1108.71 ml 460 ml 420 ml Output Total 550 ml 500 ml 680 ml Balance 558.71 ml -40 ml -260 ml Intake Oral 360 ml 420 ml IV Total 108.71 ml 100 ml Other 1000 ml Output Urine Total 450 ml 500 ml 680 ml Estimated Blood Loss 100 ml # Voids 1 # Bowel Movements 0 0 Result Diagram: 04/26/17 0600 04/26/17 0600 Procedures Right TKA Objective Remarks Patient's dressing is C/D/I. EHL/TA/G intact. 2+ pedal pulse. Calf is soft and nontender. + SILT. Assessment & Plan Ortho Post Op Day #: 1 Problem List: Assessment and Plan POD #1: Right TKA 1. WBAT RLE 2. Lovenox followed by ASA for DVT prophylaxis 3. Ice to the right knee PRN 4. Stable for discharge to SNF today as his insurance allows for this per nursing staff. 5. F/U in the office with Dr. Gerardo or ELINA Robbins as previously scheduled. Leland David Apr 26, 2017 13:06
[2017-04-26 14:03] LABS: HEMOGLOBIN A1a 0.9 %; HEMOGLOBIN A1b 1.6 %; HEMOGLOBIN Ao 85.9 %
[2017-04-26 16:00] VITALS: BP 139/80; PULSE 97; RESP 18; TEMP 98.6; O2SAT 96
[2017-04-26] MEDS ORDERED: DOCUSATE SODIUM 100 MG CAP PO SCH (21:00)
[2017-04-26] MEDS ORDERED: MULTIVITAMINS/MINERALS THERAPEUTIC TAB PO SCH (21:00)
--- NOTE | 2017-05-01 21:14 | HHI.DS ---
Discharge Summary Admission Date Apr 25, 2017 at 07:08 Discharge Date: Apr 26, 2017 Admitting Diagnosis Primary localized OA of the lower leg Status post total knee replacement, right Diagnosis: (1) Primary localized osteoarthrosis, lower leg Diagnosis: Principal ICD Codes: M17.10 - Unilateral primary osteoarthritis, unspecified knee (2) Status post total knee replacement, right Diagnosis: Principal ICD Codes: Z96.651 - Presence of right artificial knee joint Procedures Right TKA Brief History This is a 66 year old male patient with severe OA of the right knee PE at Discharge Patient's dressing is C/D/I. EHL/TA/G intact. 2+ pedal pulse. Calf is soft and nontender. + SILT. Hospital Course The patient was admitted to the hospital for severe OA of the right knee to have a right TKA. The patient's surgery went well with no complications. The patient is WBAT. The patient is on a regular diet. The patient was placed on Lovenox followed by ASA for DVT prophylaxis. The patient was discharged to SNF and will f/u in the office with Dr. Gerardo or ELINA Robbins as previously scheduled. Pt Condition on Discharge: Stable Discharge Disposition: Discharge to SNF Discharge Instructions Diet Instructions: As Tolerated, No Restrictions Activities You Can Perform: Weight Bearing as Wallace Activities to Avoid: Strenuous Activity Follow up Referrals: Orthopedics with Paresh Gerardo MD New Medications: Aspirin DR (Ecotrin Regular Strength) 325 Mg Tabdr 325 MG PO DAILY for Prevent Blood Clot, #30 TAB 0 Refills Start Aspirin after Lovenox is completed. Commode 3-in-1 (Commode 3-in-1) 1 Mis Mis EA .ROUTE DIRECTED, #1 0 Refills CPM-Continuous Passive Motion Machine (CPM-Continuous Passive Motion Machine) 1 Ea Device EA .ROUTE DIRECTED, #1 0 Refills Enoxaparin Inj (Enoxaparin Inj) 40 Mg/0.4 Ml Syr 40 MG SQ DAILY for Blood Clot Prevention, #10 SYRINGE 0 Refills Start Aspirin after Lovenox is completed. Walker with Front Wheels (Walker with Front Wheels) 1 Mis Mis EA .ROUTE DIRECTED, #1 0 Refills Continued Medications: Amlodipine (Norvasc) 5 Mg Tab 5 MG PO HS for Blood Pressure Management, #30 TAB 0 Refills Discontinued Medications: Aspirin/Acetaminophen/Caffeine (Goody's Ex-Str Powder Packet) 500 Mg-325 Mg-65 Mg Powd.pack 550 MG PO DAILY for Pain Management Oxaprozin (Daypro) 600 Mg Tab 800 MG PO Q12HR for Arthritis, #60 TAB 0 Refills Leland David May 01, 2017 21:14
== END 2017-04-26 18:08 | DRG 470 ==
LOC: HSDI 07:08 → N06B 15:04
PROVIDERS: ADMIT Orthopaedic Surgery; ATTEND Orthopaedic Surgery
PROC: 3E0T3BZ Introduction of Anesthetic Agent into Peripheral Nerves and Plexi, Percutaneous Approach (ICD-10-PCS; 2017-04-25)
PROC: 0SRC0J9 Replacement of Right Knee Joint with Synthetic Substitute, Cemented, Open Approach (ICD-10-PCS; principal; 2017-04-25 10:07)
DX: M17.11 Unilateral primary osteoarthritis, right knee (principal); I10 Essential (primary) hypertension; Z96.643 Presence of artificial hip joint, bilateral; J44.9 Chronic obstructive pulmonary disease, unspecified; F17.210 Nicotine dependence, cigarettes, uncomplicated; Z85.828 Personal history of other malignant neoplasm of skin
CPT/HCPCS: 73560; 80053; 83036; 83735; 84100; 84439; 84443; 85025; 86850; 86900; 86901; 94150; C1776; C9290; J0131; J0690; J0735; J1100; J1580; J1650; J1885; J2270; J2370; J2405; J2795; J3370; J7030; J7050; J7120; L1830

== ENCOUNTER 2017-04-30 11:30 | Emergency (ER) | payer OTHER ==
[~2017-04-30] VITALS: Ht 180.3 cm; Wt 90.0 kg
[~2017-04-30 11:30] MED LIST changes: +AMLO5 PO; +ASPI-146 PO; -ASPI1POW9 PO; +COMMODE 3-IN-11 MIS; +CPMMACHINE; -DAYP600T PO; +ENOX40IN SQ; -METO50TA PO; +NORC5TAB PO; +WALKER WHEELS/F1 MIS
[2017-04-30 11:39] VITALS: BP 187/84; PULSE 104; RESP 18; TEMP 98.9; O2SAT 95
[2017-04-30] MEDS ORDERED: SODIUM CHLOR 0.9% 1000 ML INJ 1,000 ML IV SCH (11:46)
[2017-04-30] MEDS ORDERED: MORPHINE SULFATE 4 MG/ML INJ IV PUSH ONE (12:00)
[2017-04-30] MEDS ORDERED: SODIUM CHLORIDE 0.9% FLUSH 10 ML FLUSH IV FLUSH PRN (12:00)
[2017-04-30] MEDS ORDERED: MORPHINE SULFATE 2 MG/ML INJ IV PUSH ONE (12:00)
--- NOTE | 2017-04-30 12:01 | PD ---
HPI Chief Complaint: Musculoskeletal Complaint Time Seen by Provider: 11:41 Travel History International Travel<30 days: No Contact w/Intl Traveler<30days: No Traveled to known affect area: No History of Present Illness HPI 66 YO M with PMH of right TKR by Dr. Gerardo on 04/25 presents to the ED via EMS for evaluation of "a few days" history of increased pain, bruising and warmth of the right knee. Gradual onset. Pain is 10/10, constant, throbbing. No radiation. Worsened by attempted ambulation. No alleviating factors reported. The patient can identify no acute injury. He has been minimally ambulatory on the extremity. He denies fever, chills, cough, shortness of breath, chest pain, abdominal pain, dysuria. States that he treated with Percocet at 11:00 last night with no improvement of symptoms. He states that he spoke to the physician on-call for Dr. Gerardo and was told to come to the emergency room.. PFSH Past Medical History Arthritis: Yes Autoimmune Disease: No Cancer: Yes (basal cell skin cancer) Cardiovascular Problems: No Diabetes: No Endocrine: No Genitourinary: No Hepatitis: No Hiatal Hernia: No Hypertension: Yes Immune Disorder: No Implanted Vascular Access Dvce: Yes Musculoskeletal: Yes (Osteoarthritis) Neurologic: No Psychiatric: No Reproductive: No Respiratory: No Thyroid Disease: No ?: Not Past Surgical History Abdominal Surgery: No AICD: No Body Medical Devices: LUMBAR HARDWARE Cardiac Surgery: No Ear Surgery: No Endocrine Surgery: No Eye Surgery: Yes (LEFT EYE macular hole repair) Genitourinary Surgery: No Gynecologic Surgery: No Joint Replacement: Yes (JENNIFER HIPS) Neurologic Surgery: Yes (LUMBAR FUSION) Oral Surgery: No Pacemaker: No Thoracic Surgery: No Other Surgery: Yes Social History Alcohol Use: No Tobacco Use: No Substance Use: No Allergies-Medications (Allergen,Severity, Reaction): Coded Allergies: No Known Allergies (Verified Allergy, Unknown, 04/25/17) Reported Meds & Prescriptions Reported Meds & Active Scripts Active Walker with Front Wheels (Device) 1 Mis Mis Ea .ROUTE DIRECTED CPM-Continuous Passive Motion Machine 1 Ea Device Ea .ROUTE DIRECTED Commode 3-in-1 (Device) 1 Mis Mis Ea .ROUTE DIRECTED Enoxaparin Inj (Enoxaparin Sodium) 40 Mg/0.4 Ml Syr 40 Mg SQ DAILY Start Aspirin after Lovenox is completed. Ecotrin Regular Strength (Aspirin) 325 Mg Tabdr 325 Mg PO DAILY Start Aspirin after Lovenox is completed. Reported Percocet (Oxycodone-Acetaminophen) 7.5-325 mg Tab 1 Tab PO Q4H PRN Soma (Carisoprodol) 350 Mg Tab 350 Mg PO TID PRN Norvasc (Amlodipine Besylate) 5 Mg Tab 5 Mg PO HS Review of Systems Except as stated in HPI: all other systems reviewed are Neg Physical Exam Narrative GENERAL: Well-nourished, well-developed white male in no acute distress. SKIN: Focused skin assessment warm/dry. Ecchymosis over the entire length of the right lower extremity. Well-healing surgical incision over the anterior knee. Erythema and warmth noted of the anterior knee. HEAD: Normocephalic. EYES: No scleral icterus. No injection or drainage. NECK: Supple, trachea midline. No JVD or lymphadenopathy. CARDIOVASCULAR: Regular rate and rhythm without murmurs, gallops, or rubs. RESPIRATORY: Breath sounds clear and equal bilaterally. No accessory muscle use. GASTROINTESTINAL: Abdomen soft, non-tender, nondistended. Active bowel sounds MUSCULOSKELETAL: No cyanosis, or edema. FOCUSED RIGHT LOWER EXTREMITY EXAM: 2+ DP pulse. Patient is able to wiggle the toes and flex and extend the ankle. Patient is able to flex and extend the knee. Homans sign negative. No popliteal tenderness. Neurovascularly intact distally. BACK: Nontender without obvious deformity. No CVA tenderness. Data Data Last Documented VS Vital Signs Date Time Temp Pulse Resp B/P (MAP) Pulse Ox O2 Delivery O2 Flow Rate FiO2 04/30/17 13:17 98.7 95 19 162/79 (106) 100 Room Air Orders Orders Complete Blood Count With Diff (04/30/17 11:46) Comprehensive Metabolic Panel (04/30/17 11:46) Lactic Acid (04/30/17 11:46) Prothrombin Time / Inr (Pt) (04/30/17 11:46) Act Partial Throm Time (Ptt) (04/30/17 11:46) Urinalysis - C+S If Indicated (04/30/17 11:46) Iv Access Insert/Monitor (04/30/17 11:46) Ecg Monitoring (04/30/17 11:46) Oximetry (04/30/17 11:46) Morphine Inj (Morphine Inj) (04/30/17 12:00) Sodium Chlor 0.9% 1000 Ml Inj (Ns 1000 M (04/30/17 11:46) Sodium Chloride 0.9% Flush (Ns Flush) (04/30/17 12:00) Blood Culture (04/30/17 11:46) Knee, Complete (4vws) (04/30/17 11:46) Ice/Cold Pack (04/30/17 11:46) Morphine Inj (Morphine Inj) (04/30/17 12:00) Vancomycin Inj (Vancomycin Inj) (04/30/17 13:00) Lactic Acid (04/30/17 13:15) Oxycodone-Acetamin 10-325 Mg (Percocet 1 (04/30/17 13:30) Ed Discharge Order (04/30/17 13:51) Labs Laboratory Tests Test 04/30/17 12:00 04/30/17 12:10 04/30/17 12:36 04/30/17 13:35 White Blood Count 8.0 TH/MM3 Red Blood Count 4.00 MIL/MM3 Hemoglobin 12.1 GM/DL Hematocrit 35.3 % Mean Corpuscular Volume 88.2 FL Mean Corpuscular Hemoglobin 30.2 PG Mean Corpuscular Hemoglobin Concent 34.2 % Red Cell Distribution Width 15.2 % Platelet Count 371 TH/MM3 Mean Platelet Volume 7.4 FL Neutrophils (%) (Auto) 71.2 % Lymphocytes (%) (Auto) 17.4 % Monocytes (%) (Auto) 8.4 % Eosinophils (%) (Auto) 2.3 % Basophils (%) (Auto) 0.7 % Neutrophils # (Auto) 5.7 TH/MM3 Lymphocytes # (Auto) 1.4 TH/MM3 Monocytes # (Auto) 0.7 TH/MM3 Eosinophils # (Auto) 0.2 TH/MM3 Basophils # (Auto) 0.1 TH/MM3 CBC Comment DIFF FINAL Differential Comment Prothrombin Time 10.4 SEC Prothromb Time International Ratio 1.0 RATIO Activated Partial Thromboplast Time 27.4 SEC Blood Urea Nitrogen 20 MG/DL Creatinine 0.91 MG/DL Random Glucose 126 MG/DL Total Protein 7.2 GM/DL Albumin 3.1 GM/DL Calcium Level 8.5 MG/DL Alkaline Phosphatase 64 U/L Aspartate Amino Transf (AST/SGOT) 57 U/L Alanine Aminotransferase (ALT/SGPT) 39 U/L Total Bilirubin 0.7 MG/DL Sodium Level 136 MEQ/L Potassium Level 5.0 MEQ/L Chloride Level 104 MEQ/L Carbon Dioxide Level 26.9 MEQ/L Anion Gap 5 MEQ/L Estimat Glomerular Filtration Rate 84 ML/MIN Lactic Acid Level 2.6 mmol/L 0.7 mmol/L Urine Color YELLOW Urine Turbidity CLEAR Urine pH 7.5 Urine Specific [place] 1.016 Urine Protein NEG mg/dL Urine Glucose (UA) NEG mg/dL Urine Ketones NEG mg/dL Urine Occult Blood NEG Urine Nitrite NEG Urine Bilirubin NEG Urine Urobilinogen 2.0 MG/DL Urine Leukocyte Esterase NEG Urine RBC LESS THAN 1 /hpf Urine WBC 1 /hpf Urine Mucus FEW /lpf Microscopic Urinalysis Comment CULT NOT INDICATED MDM Medical Decision Making Medical Screen Exam Complete: Yes Emergency Medical Condition: Yes Differential Diagnosis post operative pain versus wound infection versus cellulitis versus UTI versus other Narrative Course 66 YO M with PMH of right TKR by Dr. Gerardo on 04/25 presents to the ED via EMS for evaluation of "a few days" history of increased pain, bruising and warmth of the right knee. Gradual onset. Pain is 10/10, constant, throbbing. He has been minimally ambulatory on the extremity. He denies fever, chills, cough, shortness of breath, chest pain, abdominal pain, dysuria. He states that he spoke to the physician on-call for Dr. Gerardo and was told to come to the emergency room. Patient is afebrile on arrival. Physical exam reveals ecchymosis of the entire right lower extremity. The wound itself is well healing without signs of infection. The knee is warm but there is no erythema, edema noted. IV was established. Patient was administered 4 mg morphine and 1 L normal saline. I reviewed the patient's record. Per Dr. Gerardo's intraoperative note the patient received IV Ancef and vancomycin on the operative table. No elevation of the white count. On CBC. First lactic acid 2.6, repeat after fluids 0.7. I spoke with Dr. Pierre by phone. Patient was administered 1 g of vancomycin IV. Dr. Pierre examined the patient in the ED and determined him safe for discharge. Patient was administered a single dose of 10 mg Percocet set by mouth. He is instructed to follow-up with Dr. Gerardo tomorrow morning. He is stable and discharged home. Diagnosis Primary Impression: Postoperative pain of right knee Referrals: Paresh Gerardo MD Patient Instructions: General Instructions, Knee Replacement (DC) Additional Instructions: Rest, hydrate. Return to normal, gentle activities as tolerated. Resume pain medications at home as they are prescribed. Follow-up with Dr. Gillette tomorrow morning. Return to the ED for any urgent or emergent medical condition. Disposition: 01 DISCHARGE HOME Condition: Stable Adri Carmona Apr 30, 2017 12:01
[2017-04-30 12:25] LABS: AUTOMATED NEUTROPHIL # 5.7 TH/MM3 (1.8-7.7); BASOPHIL # 0.1 TH/MM3 (0-0.2); BASOPHIL % 0.7 % (0.0-2.0); EOSINOPHIL # 0.2 TH/MM3 (0-0.4); EOSINOPHIL % 2.3 % (0.0-4.0); HEMATOCRIT 35.3 % (39.0-51.0); HEMOGLOBIN 12.1 GM/DL (13.0-17.0); LYMPH % 17.4 % (9.0-44.0); LYMPHOCYTE # 1.4 TH/MM3 (1.0-4.8); MEAN CELL VOLUME 88.2 FL (80.0-100.0); MEAN CORPUSCULAR HEMOGLOBIN 30.2 PG (27.0-34.0); MEAN CORPUSCULAR HGB CONC 34.2 % (32.0-36.0); MEAN PLATELET VOLUME 7.4 FL (7.0-11.0); MONO % 8.4 % (0.0-8.0); MONOCYTE # 0.7 TH/MM3 (0-0.9); NEUT % 71.2 % (16.0-70.0); PLATELET COUNT 371 TH/MM3 (150-450); RED CELL DISTRIBUTION WIDTH 15.2 % (11.6-17.2)
[2017-04-30] MEDS ORDERED: SOMA350T PO (12:26)
[2017-04-30] MEDS ORDERED: PERC7.5T13 PO (12:26)
[2017-04-30 12:33] LABS: PROTHROMBIN TIME - PATIENT 10.4 SEC (9.8-11.6)
--- NOTE | 2017-04-30 12:36 | RADRPT ---
EXAM DATE/TIME: 04/30/2017 12:18 [facility] COMPARISON: No previous studies available for comparison. INDICATIONS : Joint pain. MEDICAL HISTORY : None. SURGICAL HISTORY : Knee replacement. ENCOUNTER: Initial ACUITY: 4 - 6 days PAIN SCORE: 10/10 LOCATION: Right Knee. FINDINGS: AP and lateral views of the knee following arthroplasty reveals a prosthesis in anatomic alignment. F racture is not appreciated. Small joint effusion is evident. CONCLUSION: Status post total knee arthroplasty. Small joint effusion Paras Jacobson MD FACR Board Certified Radiologist. This report was verified electronically.
[2017-04-30 12:44] LABS: ALT (GPT) 39 U/L (12-78)
[2017-04-30 12:46] LABS: ALKALINE PHOSPHATASE 64 U/L (45-117); TOTAL BILIRUBIN ADULT 0.7 MG/DL (0.2-1.0); TOTAL PROTEIN 7.2 GM/DL (6.4-8.2)
[2017-04-30 12:47] LABS: BILIRUBIN, URINE NEG (NEG); BLOOD, URINE NEG (NEG); GLUCOSE,URINE NEG (NEG); KETONE, URINE NEG (NEG); MUCUS URINE FEW /lpf (OCC); NITRITE,URINE NEG (NEG); PH, URINE 7.5 (5.0-8.5); URINE COLOR YELLOW (YELLW/STRAW); URINE LEUKOCYTE ESTERASE NEG (NEG)
[2017-04-30 12:54] LABS: ALBUMIN 3.1 GM/DL (3.4-5.0); AST (GOT) 57 U/L (15-37); BICARBONATE 26.9 MEQ/L (21.0-32.0); BLOOD UREA NITROGEN 20 MG/DL (7-18); CALCIUM 8.5 MG/DL (8.5-10.1); CHLORIDE 104 MEQ/L (98-107); CREATININE 0.91 MG/DL (0.60-1.30); GLOMERULAR FILTRATION RATE 84 ML/MIN (>89); GLUCOSE,RANDOM 126 MG/DL (74-106); SODIUM (NA) 136 MEQ/L (136-145)
[2017-04-30] MEDS ORDERED: VANCOMYCIN INJ 1,000 MG in SODIUM CHLOR 0.9% 250 ML INJ 250 ML IV ONE (13:00)
[2017-04-30 13:17] VITALS: BP 162/79; PULSE 95; RESP 19; TEMP 98.7; O2SAT 100
[2017-04-30] MEDS ORDERED: oxyCODONE/ACETAMINOPHEN 10 MG/325 MG TAB PO ONE (13:30)
--- NOTE | 2017-04-30 14:54 | PD.ORT.PN ---
Subjective Subjective Remarks Presents to emergency department complaining of increase right leg pain, swelling and redness. Denies any fever or chills. Denies any trauma, chest pain or shortness of breath. s/p right TKA Dr Gerardo 04/25/17 Objective Vitals Vital Signs Date Time Temp Pulse Resp B/P (MAP) Pulse Ox O2 Delivery O2 Flow Rate FiO2 04/30/17 13:17 98.7 95 19 162/79 (106) 100 Room Air 04/30/17 12:31 17 04/30/17 11:39 98.9 104 18 187/84 (118) 95 I/O 04/29/17 04/29/17 04/29/17 04/30/17 04/30/17 04/30/17 07:00 15:00 23:00 07:00 15:00 23:00 Intake Total 1250 ml Balance 1250 ml Intake IV Total 1250 ml Result Diagram: 04/30/17 1200 04/30/17 1200 Other Results Laboratory Tests Test 04/30/17 12:00 Prothromb Time International Ratio 1.0 RATIO Prothrombin Time 10.4 SEC (9.8-11.6) Imaging Last 24 hours Impressions Knee X-Ray 04/30/17 1146 Signed Impressions: Service Date/Time: Sunday, April 30, 2017 12:18 - CONCLUSION: Status post total knee arthroplasty. Small joint effusion Paras Jacobson MD Objective Remarks Alert awake and oriented -3. No acute distress. Pulmonary: Normal respiratory effort. Right lower extremity: Neurovascularly intact, diffuse leg swelling from the thigh distally. Compartments are soft in the thigh and leg. Diffuse ecchymosis and in medial thigh as well as medial and lateral leg. +EHL/FHL, dressing clean, dry and intact. no drainage, ROM 0-45, + PT/DP pulses. Negative Homans sign. Left lower extremity: neurovascularly intact Assessment & Plan Assessment and Plan s/p right TKA Dr Gerardo 04/25/17 66yo male, Presents to emergency department complaining of increase right leg pain, swelling and redness. He is currently in inpatient rehabilitation facility. He Denies any fever or chills. Denies any trauma, chest pain or shortness of breath. I had a long discussion with the patient. He is exam is within normal limits and rather benign. This is within normal postoperative knee and leg swelling. His compartments are soft, his wound is dry and there is no signs of wound infection, compartment syndrome or deep vein thrombosis. I recommend that he discontinues to use of the CPM for 1-2 days until his pain is better controlled. I also recommend ice, elevation and to increase the frequency of his po pain medicine from q4 to q3hrs. ok to dc. I have instructed him to call the office tomorrow and to see Dr. Gerardo this week. Bebo Pierre Jr., MD Apr 30, 2017 14:54
[2017-04-30 15:11] VITALS: RESP 17
== END 2017-04-30 17:05 | disposition home or self-care (01) ==
LOC: NEPE 11:30
DX: G89.18 Other acute postprocedural pain (principal); M25.561 Pain in right knee; I10 Essential (primary) hypertension; M19.90 Unspecified osteoarthritis, unspecified site; Z96.651 Presence of right artificial knee joint; Z85.828 Personal history of other malignant neoplasm of skin
CPT/HCPCS: 73564; 80053; 81001; 83605; 85025; 85610; 85730; 87040; 96361; 96365; 96375; 96376; 99284; J2270; J3370; J7030; J7050

== ENCOUNTER 2017-10-05 05:41 | Inpatient (IN) | payer OTHER ==
[~2017-10-05] VITALS: Ht 180.3 cm; Wt 86.8 kg
[~2017-10-05 05:41] MED LIST changes: -AMLO5 PO; +ASCO1CAP PO; -ASPI-146 PO; +ASPI1TAB57 PO; -COMMODE 3-IN-11 MIS; -CPMMACHINE; +DAYP600T PO; -ENOX40IN SQ; +METO50TA PO; +MULT-65 PO; -NORC5TAB PO; +PERC7.5T13 PO; -WALKER WHEELS/F1 MIS
[2017-10-05] MEDS ORDERED: CHLORHEXIDINE GLUCONATE 2 % 1 PACK (2 CLOTHS) TOPICAL PRN (06:15)
[2017-10-05] MEDS ORDERED: CHLORHEXIDINE GLUCONATE 4% SOLN 120 ML BTL TOPICAL SCH (06:15)
[2017-10-05] MEDS ORDERED: DEXAMETHASONE SOD PHOS 20 MG/5 ML VIAL IV PUSH ONE (06:15)
[2017-10-05] MEDS ORDERED: FAMOTIDINE 20 MG/2 ML VIAL IV PUSH ONE (06:15)
[2017-10-05] MEDS ORDERED: GABAPENTIN 300 MG CAP PO ONE (06:15)
[2017-10-05] MEDS ORDERED: VANCOMYCIN 1 GM/200 ML INJ 200 ML IV SCH (06:15)
[2017-10-05] MEDS ORDERED: METOPROLOL TARTRATE 25 MG TAB PO PRN (06:15)
[2017-10-05] MEDS ORDERED: ceFAZolin 2 GM PREMIX 50 ML IV SCH (06:15)
[2017-10-05] MEDS ORDERED: POVIDONE IODINE 5% (ANTISEPSIS KIT) 4 APPLICATIONS EACH NARE PRN (06:15)
[2017-10-05] MEDS ORDERED: LACTATED RINGER'S 1000 ML IV PRN (06:15)
[2017-10-05] MEDS ORDERED: CELECOXIB 200 MG CAP PO ONE (06:15)
[2017-10-05] MEDS ORDERED: ONDANSETRON HCL 4 MG/2 ML VIAL IV PUSH ONE ×2 (06:15→11:44)
[2017-10-05] MEDS ORDERED: SODIUM CHLORID 0.9% 500 ML IV PRN (06:15)
[2017-10-05] MEDS ORDERED: ACETAMINOPHEN 1000 MG/100 ML 100 ML IV SCH (06:15)
[2017-10-05] MEDS ORDERED: ONDANSETRON ODT 4 MG TAB ONE (06:18)
[2017-10-05] MEDS ORDERED: ASPI-183 PO (06:23)
[2017-10-05] MEDS ORDERED: PERC10TA27 PO ×2 (06:23→11:01)
[2017-10-05 06:49] LABS: AUTOMATED NEUTROPHIL # 4.5 TH/MM3 (1.8-7.7); BASOPHIL # 0.1 TH/MM3 (0-0.2); EOSINOPHIL # 0.2 TH/MM3 (0-0.4); EOSINOPHIL % 3.2 % (0.0-4.0); HEMATOCRIT 40.8 % (39.0-51.0); LYMPH % 24.1 % (9.0-44.0); LYMPHOCYTE # 1.8 TH/MM3 (1.0-4.8); MEAN CELL VOLUME 85.3 FL (80.0-100.0); MEAN CORPUSCULAR HEMOGLOBIN 29.2 PG (27.0-34.0); MEAN CORPUSCULAR HGB CONC 34.2 % (32.0-36.0); MEAN PLATELET VOLUME 7.6 FL (7.0-11.0); MONO % 10.7 % (0.0-8.0); MONOCYTE # 0.8 TH/MM3 (0-0.9); PLATELET COUNT 289 TH/MM3 (150-450); RED BLOOD COUNT 4.79 MIL/MM3 (4.50-5.90); RED CELL DISTRIBUTION WIDTH 14.7 % (11.6-17.2); WHITE BLOOD COUNT 7.3 TH/MM3 (4.0-11.0)
[2017-10-05 07:02] LABS: BICARBONATE 24.8 MEQ/L (21.0-32.0); CALCIUM 8.3 MG/DL (8.5-10.1); CREATININE 1.01 MG/DL (0.60-1.30)
[2017-10-05] MEDS ORDERED: GENTAMICIN SULFATE 80 MG/2 ML VIAL ONE (07:10)
[2017-10-05 07:11] LABS: BILIRUBIN, URINE NEG (NEG); BLOOD, URINE MOD (NEG); GLUCOSE,URINE NEG (NEG); HYALINE CAST, URINE 2 /lpf (RARE); KETONE, URINE NEG (NEG); NITRITE,URINE NEG (NEG); PH, URINE 5.5 (5.0-8.5); URINE COLOR YELLOW (YELLW/STRAW); URINE LEUKOCYTE ESTERASE NEG (NEG)
[2017-10-05] MEDS ORDERED: BUPIVACAINE-EPI PF 0.25% INJ 20 ML, BUPIVACAINE LIPOSO PF 1.3% INJ 20 ML in SODIUM CHLO... P-ARTICULR SCH (08:30)
[2017-10-05] MEDS ORDERED: SODIUM CHLORIDE 0.9% IV SCH (08:30)
[2017-10-05] MEDS ORDERED: TRANEXAMIC ACID IV SCH (08:30)
[2017-10-05] MEDS ORDERED: VANCOMYCIN HCL 1000 MG VIAL ONE (10:24)
[2017-10-05] MEDS ORDERED: NALOXONE HCL 0.4 MG/ML AMP IV PUSH PRN (11:00)
[2017-10-05] MEDS ORDERED: Post-op Orders (for Pharmacy) XX ONE (11:00)
[2017-10-05] MEDS ORDERED: diphenhydrAMINE HCL 25 MG CAP PO PRN (11:00)
[2017-10-05] MEDS ORDERED: ONDANSETRON HCL 4 MG/2 ML VIAL IVP PRN (11:00)
--- NOTE | 2017-10-05 11:02 | HHI.FF ---
Face to Face Verification Diagnosis: (1) Status post total hip replacement, right Physical Therapy Gait training Hip: Total hip, Protocol: Right, Posterior hip precautions Canvas Knee Splint: Remove only with PT Right LE Weight Bearing: Partial WB 50% (x 3 weeks) Nursing Dressing Changes: Do not change dressing (x 6 days. ), Daily dressing change ( to begin on POD 7 with primapore. maintain surgical mesh that is on incision) I have seen patient Leo Cannon Jr on 10/05/17. My clinical findings support the need for the requested home health care services because: Ltd mobility - disease progression I certify that my clinical findings support that this patient is homebound because: Post-op weakness Adrien Butler/First Clarita JOHNSON Oct 05, 2017 11:02
--- NOTE | 2017-10-05 11:11 | PD.OP ---
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 My P.A. presence was necessary throughout this case for the manipulation and positioning of the surgical extremity. My P.A. was assisting me throughout the duration of this procedure. The skill set of a physician ophthalmic medical assistant was medically necessary to complete this procedure. During the surgical case the medical technologist hematology was working at the back table and the physician ophthalmic medical assistant was directly assisting me. Operation and Findings: Plan of activity: 50% weightbearing 3 weeks, then weight bear as tolerated. DRAINS: 7-mm ELISE drain. IMPLANTS USED DePuy Maria Stein size 6 high offset stem and a [32+1] ceramic Biolox ceramic head. DETAILS OF PROCEDURE: This patient has a long history of hip pain. Patient was found to have severe pain from loosened femoral stem. The patient failed conservative treatment with pain medications, anti-inflammatories, activity restriction, and use of assistive devices. The patient wished to proceed with surgery and informed consent was obtained. Operative site was marked. I discussed both posterior approach and anterior approach with patient decision was made for posterior approach. Patient was brought to OR and placed on OR table. IV sedation and general anesthesia was administered by anesthesiologist. Patient was positioned lateral on the operating room table and was given IV antibiotics. Time-out procedure was performed. The operative hip and leg were prepped with alcohol followed by Hibiclens and draped in the usual sterile fashion. Clean Air Suite was used for this procedure. Antibiotics were held until after cultures were obtained. The procedure began with a 6-inch incision over the posterolateral thigh. Subcutaneous tissue was dissected with Bovie. The fascia of the iliotibial band was incised. Gluteus muscle was split in line with fibers. Charnley retractor was placed. Piriformis and external rotator muscles were identified and then released from the posterior femur. The hip capsule was incised and sutures were placed to help retract the capsule. At this point the femoral head and neck were identified. At this point the stem was manipulated. There was loosening with visible movement of the stem. Osteotomes were used to remove some bone around the proximal end of the stem. The stem was now carefully removed. Tissue was now obtained and sent to pathology as well as for cultures. Frozen section was negative for acute inflammation. At this point attention was turned towards preparation of the proximal femur. Retractors were placed around the proximal femur to allow for exposure. Canal finder was used to create a path down the canal. The canal was now carefully reamed up to size 6. Size 6 was a very tight fit. Next, the canal was sequentially broached until there was an excellent fit. The size 6 had excellent rotational and axial stability. Calcar planer was placed. A trial head was placed and the hip was reduced. Trial head was now was placed and the hip was found to have excellent stability with good range of motion. The leg lengths were measured under clinically and found to be equal compared to preoperatively. Trial broach was removed. The size 6 Maria Stein stem was opened. Stem was fully impacted into the proximal femur in appropriate version. The femoral head was placed. The hip was again reduced. The wound was thoroughly irrigated. Hip capsule, external rotators, and iliotibial band was closed with #1 Vicryl. Subcutaneous tissue was closed with 3-0 Vicryl and the skin was closed with cruzito and Dermabond skin closure. The capsule layers were injected with a mixture of saline and bupivicaine. Dressings were applied. The patient was transferred to Recovery Room in stable condition. Britton Fuller MD Oct 05, 2017 11:11
--- NOTE | 2017-10-05 11:13 | PD.ORT.PN ---
Subjective Subjective Remarks Patient is postop day #0 status post revision of right femoral stem for mechanical loosening. Objective Vitals Vital Signs Date Time Temp Pulse Resp B/P (MAP) Pulse Ox O2 Delivery O2 Flow Rate FiO2 10/05/17 06:23 98.4 66 18 117/68 (84) 96 Result Diagram: 10/05/1762510/05/1726 Objective Remarks Clean surgical dressings are in place. Minimal drainage. Calf and thigh compartments are soft. Assessment & Plan Assessment and Plan Physical therapy: 50% weightbearing 3 weeks, then weight-bear as tolerated Lovenox in hospital followed by Xarelto 10 days followed by aspirin twice daily No dressing change until postop day #6 SCDs and HAYDEE bonner Discharge home Sunday or Sunday if patient comfortable Follow-up 2 weeks Britton Goss MD Oct 05, 2017 11:13
[2017-10-05] MEDS ORDERED: DO NOT ADM ANY ANTICOAGULANT DRUGS PRN (11:22)
[2017-10-05] MEDS ORDERED: MIDAZOLAM HCL 2 MG/2 ML VIAL ONE (11:29)
[2017-10-05] MEDS ORDERED: *morphine SULFATE 10 MG/ML PERIprocedure ONLY ONE (11:39)
[2017-10-05] MEDS ORDERED: ePHEDrine/NS 25 MG/5 ML SYRINGE IV ONE (11:44)
[2017-10-05] MEDS ORDERED: ROCURONIUM INJ 50 MG/5 ML SYRINGE IV PUSH ONE (11:44)
[2017-10-05] MEDS ORDERED: NEOSTIGMINE 5 MG/5 ML SYRINGE IV PUSH ONE (11:44)
[2017-10-05] MEDS ORDERED: DEXAMETHASONE SOD PHOS 4 MG/ML VIAL IV ONE (11:44)
[2017-10-05] MEDS ORDERED: PHENYLEPH/NS 1000 MCG/10 ML SYR IV ONE (11:44)
[2017-10-05] MEDS ORDERED: GLYCOPYRROLATE 1 MG/5 ML SYRINGE IV PUSH ONE (11:44)
[2017-10-05] MEDS ORDERED: LACTATED RINGER'S 1000 ML INJ 1,000 ML IV ONE (11:44)
[2017-10-05] MEDS ORDERED: PROPOFOL 200 MG/20 ML AMP IV ONE (11:44)
[2017-10-05] MEDS ORDERED: LIDOCAINE HCL 1% PF 5 ML SYRINGE OTHER ONE (11:44)
[2017-10-05] MEDS: LACTATED RINGER'S 1000 ML INJ 1,000 ML IV SCH ×2 (12:00→21:58)
--- NOTE | 2017-10-05 12:20 | RADRPT ---
EXAM DATE: 10/05/2017 12:03 PM EDT AGE/SEX: 66 years / Male INDICATIONS: Post op right hip replacement. CLINICAL DATA: This is the patient's initial encounter. Patient reports that signs and symptoms have been present for 1 day and indicates a pain score of 8/10. MEDICAL/SURGICAL HISTORY: None. . left hip replacement. COMPARISON: COMP, XR PELVIS (MIN 3 VIEWS), 09/26/2017. . FINDINGS: There are bilateral bipolar hip prostheses present. On the prior exam, bilateral bipolar hip prosthes es were present. The right hip prosthesis has been exchanged. There is air seen at the right soft tis sues consistent with the recent right hip surgery. The right prosthesis is well placed. There are keyshawn gical hardware at the lower lumbar spine. CONCLUSION: 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 The patient has a pre-existing bipolar hip prosthesis in place. Electronically signed by: Finesse Mendez MD 10/05/2017 12:18 PM EDT
[2017-10-05] MEDS ORDERED: *morphine SULFATE 8 MG/ML PERIprocedure ONLY ONE (12:21)
[2017-10-05] MEDS ORDERED: MEPERIDINE HCL 50 MG/ML VIAL ONE (12:22)
[2017-10-05] MEDS: oxyCODONE/ACETAMINOPHEN 10 MG/325 MG TAB PO PRN ×3 (14:10→21:56)
[2017-10-05] MEDS: MORPHINE SULFATE 4 MG/ML INJ IV PUSH PRN ×2 (15:14→20:06)
[2017-10-05] MEDS: ceFAZolin 2 GM PREMIX 50 ML IV SCH ×2 (15:18→21:56)
[2017-10-05 16:00] VITALS: BP 122/71; PULSE 80; RESP 18; TEMP 98.2; O2SAT 91
[2017-10-05 20:00] VITALS: BP 113/54; PULSE 83; RESP 16; TEMP 98.4; O2SAT 95
[2017-10-05] MEDS: METOPROLOL TARTRATE 50 MG TAB PO SCH (20:05)
[2017-10-05] MEDS: VANCOMYCIN INJ 1,000 MG in SODIUM CHLOR 0.9% 250 ML INJ 250 ML IV SCH (21:57)
[2017-10-06 00:30] VITALS: BP 126/60; PULSE 77; RESP 17; TEMP 98.5; O2SAT 95
[2017-10-06] MEDS: LACTATED RINGER'S 1000 ML INJ 1,000 ML IV SCH ×2 (00:30→12:11)
[2017-10-06] MEDS: MORPHINE SULFATE 4 MG/ML INJ IV PUSH PRN ×3 (01:51→10:34)
[2017-10-06] MEDS: ceFAZolin 2 GM PREMIX 50 ML IV SCH ×4 (03:01→21:29)
[2017-10-06] MEDS: oxyCODONE/ACETAMINOPHEN 10 MG/325 MG TAB PO PRN ×5 (03:02→21:30)
[2017-10-06 04:55] VITALS: BP 119/58; PULSE 68; RESP 16; TEMP 98.1; O2SAT 98
[2017-10-06 06:52] LABS: HEMATOCRIT 36.8 % (39.0-51.0); HEMOGLOBIN 12.5 GM/DL (13.0-17.0)
--- NOTE | 2017-10-06 07:46 | PD.ORT.PN ---
Subjective Subjective Remarks Fairly comfortable. Right hip very sore. NO new leg pain. No new CP or SOB. Questions about surgery. Objective Vitals Vital Signs Date Time Temp Pulse Resp B/P (MAP) Pulse Ox O2 Delivery O2 Flow Rate FiO2 10/06/17 04:55 98.1 68 16 119/58 (78) 98 10/06/17 00:30 98.5 77 17 126/60 (82) 95 10/05/17 20:00 98.4 83 16 113/54 (73) 95 10/05/17 16:00 98.2 80 18 122/71 (88) 91 10/05/17 12:55 80 16 95 Room Air 10/05/17 12:45 97.8 81 16 128/73 (91) 94 Room Air 10/05/17 12:30 82 16 130/75 (93) 94 Room Air 10/05/17 12:26 15 10/05/17 12:15 80 16 131/73 (92) 93 Room Air 10/05/17 12:00 78 15 136/70 (92) 93 Room Air 10/05/17 11:45 75 15 123/68 (86) 100 Nasal Cannula 3 10/05/17 11:44 15 10/05/17 11:30 78 14 119/65 (83) 99 Nasal Cannula 3 10/05/17 11:20 97.8 80 11 120/51 (74) 97 Nasal Cannula 3 I/O 10/05/17 10/05/17 10/05/17 10/06/17 10/06/17 10/06/17 07:00 15:00 23:00 07:00 15:00 23:00 Intake Total 1900 ml 100 ml 780 ml Output Total 600 ml 575 ml Balance 1300 ml 100 ml 205 ml Intake Oral 100 ml 480 ml IV Total 100 ml 300 ml Other 1800 ml Output Urine Total 400 ml 575 ml Estimated Blood Loss 200 ml # Bowel Movements 0 0 Result Diagram: 10/06/17 0600 10/05/17 0626 Imaging Last 24 hours Impressions Hip and Pelvis X-Ray 10/05/17 1056 Signed Impressions: CONCLUSION: 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 Objective Remarks Laying in bed NAD VSS RLE Hip dressings intact, mild drainage (change yesterday), no erythema, only mild swelling +motor at distal, +sensation, +nvi Neg homans Assessment & Plan Ortho Post Op Day #: 1 Problem List: Assessment and Plan pod#1 s/p Rev R ANTONIO Ortho stable. Cultures still pending. PT - 50% weightbearing 3 weeks, then weight-bear as tolerated Lovenox in hospital followed by Xarelto 10 days followed by aspirin twice daily Dressing changes yesterday due to drainage. Ok at bedside. May need optifoam dressing tomorrow. SCDs and HAYDEE bonner Discharge to SNF sunday as he has no support at home. Follow up in 2 weeks Nicole Kinney Oct 06, 2017 07:46
[2017-10-06 08:00] VITALS: BP 127/60; PULSE 63; RESP 19; TEMP 97.9; O2SAT 99
[2017-10-06] MEDS ORDERED: ASCORBIC ACID 2000 MG PO SCH (09:00)
[2017-10-06] MEDS: ENOXAPARIN SODIUM 40 MG/0.4 ML SYRINGE SQ SCH (10:27)
[2017-10-06] MEDS: VANCOMYCIN INJ 1,000 MG in SODIUM CHLOR 0.9% 250 ML INJ 250 ML IV SCH (10:27)
[2017-10-06 12:00] VITALS: BP 118/64; PULSE 66; RESP 20; TEMP 97.4; O2SAT 93
[2017-10-06 16:00] VITALS: BP 123/57; PULSE 68; RESP 19; TEMP 97.9; O2SAT 96
[2017-10-06 19:40] VITALS: BP 154/65; PULSE 70; RESP 18; TEMP 97.6; O2SAT 97
[2017-10-06] MEDS: DOCUSATE SODIUM 100 MG CAP PO SCH (21:29)
[2017-10-06] MEDS: METOPROLOL TARTRATE 50 MG TAB PO SCH (21:29)
[2017-10-07 00:15] VITALS: BP 128/69; PULSE 68; RESP 18; TEMP 98.2; O2SAT 94
[2017-10-07] MEDS: LACTATED RINGER'S 1000 ML INJ 1,000 ML IV SCH ×2 (01:30→14:00)
[2017-10-07] MEDS: MORPHINE SULFATE 4 MG/ML INJ IV PUSH PRN ×2 (02:25→05:17)
[2017-10-07] MEDS: oxyCODONE/ACETAMINOPHEN 10 MG/325 MG TAB PO PRN ×5 (02:36→21:14)
[2017-10-07 04:15] VITALS: BP 125/73; PULSE 71; RESP 18; TEMP 99; O2SAT 98
[2017-10-07] MEDS ORDERED: BISACODYL 10 MG SUPP RECTAL PRN (05:00)
[2017-10-07] MEDS ORDERED: MAGNESIUM HYDROXIDE SUSP 30 ML CUP PO ONE (05:00)
[2017-10-07] MEDS ORDERED: BISACODYL 10 MG SUPP RECTAL ONE (05:00)
--- NOTE | 2017-10-07 07:20 | PD.ORT.PN ---
Subjective Subjective Remarks Fairly significant pain. Did not sleep well. Dressing changed twice yesterday due to drainage Objective Vitals Vital Signs Date Time Temp Pulse Resp B/P (MAP) Pulse Ox O2 Delivery O2 Flow Rate FiO2 10/07/17 04:15 99.0 71 18 125/73 (90) 98 10/07/17 00:15 98.2 68 18 128/69 (88) 94 10/06/17 19:40 97.6 70 18 154/65 (94) 97 10/06/17 16:00 97.9 68 19 123/57 (79) 96 10/06/17 12:00 97.4 66 20 118/64 (82) 93 10/06/17 08:00 97.9 63 19 127/60 (82) 99 I/O 10/06/17 10/06/17 10/06/17 10/07/17 10/07/17 10/07/17 07:00 15:00 23:00 07:00 15:00 23:00 Intake Total 780 ml 300 ml 1342 ml 600 ml Output Total 575 ml 1150 ml 2000 ml Balance 205 ml 300 ml 192 ml -1400 ml Intake Oral 480 ml 920 ml 600 ml IV Total 300 ml 300 ml 422 ml Output Urine Total 575 ml 1150 ml 2000 ml # Voids 1 # Bowel Movements 0 0 1 Result Diagram: 10/06/17 0600 10/05/17 0626 Imaging Last 24 hours Impressions Hip and Pelvis X-Ray 10/05/17 1056 Signed Impressions: CONCLUSION: 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 Objective Remarks Laying in bed NAD VSS RLE Hip dressings intact, mild drainage (changed yesterday, twice), no erythema, only mild swelling +motor at distal, +sensation, +nvi Neg homans Assessment & Plan Assessment and Plan pod#2 s/p Rev R ANTONIO Ortho stable. Cultures negative at 24 hours PT - 50% weightbearing 3 weeks, then weight-bear as tolerated Lovenox in hospital followed by Xarelto 10 days followed by aspirin twice daily Dressing changed yesterday due to drainage. May need optifoam dressing tomorrow. SCDs and HAYDEE hose Discharge to SNF Sunday as he has no support at home. Follow up in 2 weeks Jae Jose MD Oct 07, 2017 07:20
[2017-10-07 08:00] VITALS: BP 146/72; PULSE 84; RESP 18; TEMP 98.2; O2SAT 98
[2017-10-07] MEDS: DOCUSATE SODIUM 100 MG CAP PO SCH ×2 (08:00→21:14)
[2017-10-07] MEDS: MAGNESIUM HYDROXIDE SUSP 30 ML CUP PO SCH ×2 (08:01→21:15)
[2017-10-07] MEDS: ENOXAPARIN SODIUM 40 MG/0.4 ML SYRINGE SQ SCH (08:08)
[2017-10-07 12:00] VITALS: BP 152/72; PULSE 87; RESP 18; TEMP 98.7; O2SAT 100
[2017-10-07 16:00] VITALS: BP 156/80; PULSE 105; RESP 18; TEMP 98; O2SAT 18
[2017-10-07 19:55] VITALS: BP 147/70; PULSE 93; RESP 18; TEMP 98; O2SAT 97
[2017-10-07] MEDS: METOPROLOL TARTRATE 50 MG TAB PO SCH (21:14)
[2017-10-08] VITALS: BP 143/70; PULSE 76; RESP 18; TEMP 97.8; O2SAT 98
[2017-10-08] MEDS: oxyCODONE/ACETAMINOPHEN 10 MG/325 MG TAB PO PRN ×2 (02:17→09:30)
[2017-10-08] MEDS: LACTATED RINGER'S 1000 ML INJ 1,000 ML IV SCH (02:30)
[2017-10-08 04:00] VITALS: BP 142/67; PULSE 73; RESP 18; TEMP 98; O2SAT 95
--- NOTE | 2017-10-08 07:09 | PD.ORT.PN ---
Subjective Subjective Remarks Pain is controlled. Drainage is minimal from the incision. He is planning on being discharged to rehab today Objective Vitals Vital Signs Date Time Temp Pulse Resp B/P (MAP) Pulse Ox O2 Delivery O2 Flow Rate FiO2 10/08/17 05:28 21 10/08/17 04:00 98.0 73 18 142/67 (92) 95 10/08/17 00:00 97.8 76 18 143/70 (94) 98 10/07/17 19:55 98.0 93 18 147/70 (95) 97 10/07/17 16:00 98.0 105 18 156/80 (105) 18 10/07/17 12:00 98.7 87 18 152/72 (98) 100 10/07/17 08:00 98.2 84 18 146/72 (96) 98 I/O 10/07/17 10/07/17 10/07/17 10/08/17 10/08/17 10/08/17 07:00 15:00 23:00 07:00 15:00 23:00 Intake Total 600 ml 200 ml 1080 ml 620 ml Output Total 2000 ml 500 ml Balance -1400 ml 200 ml 580 ml 620 ml Intake Oral 600 ml 200 ml 1080 ml 620 ml Output Urine Total 2000 ml 500 ml # Voids 4 5 # Bowel Movements 1 2 Result Diagram: 10/06/17 0600 10/05/17 0626 Imaging Last 24 hours Impressions Hip and Pelvis X-Ray 10/05/17 1056 Signed Impressions: CONCLUSION: 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 Objective Remarks Laying in bed NAD VSS RLE Hip dressings intact, minimal drainage, no erythema, only mild swelling +motor at distal, +sensation, +nvi Neg homans Assessment & Plan Assessment and Plan pod#3 s/p Rev R ANTONIO Ortho stable. Cultures negative at 24 hours PT - 50% weightbearing 3 weeks, then weight-bear as tolerated Lovenox in hospital followed by Xarelto 10 days followed by aspirin twice daily Daily Primapore dressing. Maintain surgical tape over incision SCDs and HAYDEE hose Discharge to SNF today as he has no support at home. Follow up in 2 weeks Patrick Gaspar Jr. Oct 08, 2017 07:09
[2017-10-08 08:00] VITALS: BP 166/76; PULSE 92; RESP 16; TEMP 97.8; O2SAT 96
[2017-10-08] MEDS ORDERED: XARE10TA PO (08:53)
[2017-10-08] MEDS: MAGNESIUM HYDROXIDE SUSP 30 ML CUP PO SCH (09:00)
[2017-10-08] MEDS: ENOXAPARIN SODIUM 40 MG/0.4 ML SYRINGE SQ SCH (09:30)
[2017-10-08] MEDS: DOCUSATE SODIUM 100 MG CAP PO SCH (09:30)
== END 2017-10-08 11:45 | DRG 468 ==
LOC: HSDI 05:41 → N06B 13:12
PROVIDERS: ADMIT Orthopaedic Surgery Orthopaedic Trauma; ATTEND Orthopaedic Surgery Orthopaedic Trauma
PROC: 0SPR0JZ Removal of Synthetic Substitute from Right Hip Joint, Femoral Surface, Open Approach (ICD-10-PCS; 2017-10-05)
PROC: 0SRR03Z Replacement of Right Hip Joint, Femoral Surface with Ceramic Synthetic Substitute, Open Approach (ICD-10-PCS; principal; 2017-10-05 09:14)
DX: T84.030A Mechanical loosening of internal right hip prosthetic joint, initial encounter (principal); Z96.641 Presence of right artificial hip joint; F17.210 Nicotine dependence, cigarettes, uncomplicated
CPT/HCPCS: 73502; 80048; 81001; 85014; 85018; 85025; 85652; 86850; 86900; 86901; 87015; 87070; 87102; 87116; 87176; 87205; 87206; 88305; 88311; 88331; C1776; C9290; J0131; J0690; J1100; J1580; J1650; J2175; J2250; J2270; J2370; J2405; J2710; J3010; J3370; J7050; J7120; L1830